=== PATIENT | female | born 1960 | race Hispanic/Latino ===

== ENCOUNTER → 2018-01-05 | Outpatient (CLI) | payer MEDICAID ==
[~2018-01-05] MED LIST: AEC81 PO; ALBU8.5H8 IH; ATOR40TA71 PO; BUDE10.2 IH; DULO30CA2 PO; FENO145T37 PO; FESO4TAB PO; FISH1CAP49 PO; FURO40TA7 PO; GEMF600T3 PO; HYDR12.54 PO; INSNOV SQ; INSU100C6 SQ; INSU100V12 SQ; LEVO50TA11 PO; LINA290C PO; LINA5TAB PO; LISI40TA4 PO; LORA10TA7 PO; METO25TA6 PO; PANT20TA12 PO; POTA-79 PO; PREG300C PO
== END | disposition home or self-care (01) ==
LOC: SHCH 08:27
PROVIDERS: ATTEND Internal Medicine Cardiovascular Disease
DX: I10 Essential (primary) hypertension (principal)
CPT/HCPCS: 93306

== ENCOUNTER → 2018-01-07 | Outpatient (CLI) | payer OTHER, SELFPAY | END | disposition home or self-care (01) | LOC: OIH 10:57 | PROVIDERS: ATTEND Internal Medicine Cardiovascular Disease | DX: Z13.6 Encounter for screening for cardiovascular disorders (principal) | CPT/HCPCS: 75571 ==

== ENCOUNTER → 2018-01-17 | Outpatient (CLI) | payer MEDICAID ==
[~2018-01-17] VITALS: Ht 144.8 cm; Wt 88.5 kg
[~2018-01-17] MED LIST changes: +REGADENOSON 0.4 MG/5 ML PF SYG IVP SCH
== END ==
LOC: SHCH 10:09
PROVIDERS: ATTEND Internal Medicine Cardiovascular Disease
DX: I10 Essential (primary) hypertension (principal); E78.5 Hyperlipidemia, unspecified
CPT/HCPCS: 78452; 93017; 96374; A9500 ×2; J2785

== ENCOUNTER → 2018-01-27 | Outpatient (CLI) | payer MEDICAID ==
[~2018-01-27] MED LIST changes: -REGADENOSON 0.4 MG/5 ML PF SYG IVP SCH
== END | disposition home or self-care (01) ==
LOC: SHCH 10:55
PROVIDERS: ATTEND Internal Medicine Cardiovascular Disease
DX: I87.2 Venous insufficiency (chronic) (peripheral) (principal); R60.9 Edema, unspecified
CPT/HCPCS: 93970

== ENCOUNTER 2018-02-18 06:56 | Day surgery (SDC) | payer MEDICAID ==
[2018-02-16 10:48] VITALS: BP 110/66
[2018-02-16 10:57] LABS: EOSINOPHILS % (AUTO) 1.8 % (0.0-8.0); HEMATOCRIT 33.2 % (36-48); MEAN CORPUSCULAR HEMOGLOBIN 32.3 pg (27.0-33.0); MONOCYTES % (AUTO) 5.8 % (3.0-13.0); NEUTROPHILS % (AUTO) 52.4 % (40.0-77.0); PLATELET COUNT (AUTO) 262 K/uL (130-400); RED CELL DISTRIBUTION WIDTH 15.1 % (11.0-15.5); WHITE BLOOD COUNT (AUTO) 5.2 K/uL (4.8-10.8)
[2018-02-16 11:01] LABS: APPEARANCE,URINE Cloudy (CLEAR); BILIRUBIN,URINE Negative (NEGATIVE); COLOR,URINE Yellow (YELLOW); GLUCOSE, URINE (UA) >=1000 mg/dL (NEGATIVE); KETONES,URINE Negative (NEGATIVE); LEUKOCYTE ESTERASE ,URINE Moderate (NEGATIVE); NITRATE,URINE Positive (NEGATIVE); OCCULT BLOOD,URINE Negative (NEGATIVE); PH,URINE 5.5 (5.0-8.0); PROTEIN,URINE Trace (NEGATIVE)
[2018-02-16 11:05] LABS: CREATININE 1.5 mg/dL (0.5-1.5); POTASSIUM 5.2 mmol/L (3.5-5.1)
[2018-02-16 11:27] LABS: BACTERIA,URINE Many /HPF (None Seen); RBC,URINE 0-1 /HPF (0-1)
[2018-02-16 11:28] LABS: INR 1.01 (0.85-1.15); PARTIAL THROMBOPLASTIN TIME 27.7 SEC (26.3-35.5); PROTHROMBIN TIME 10.6 SEC (9.6-11.6)
[2018-02-18] VITALS (11 sets, daily range): BP systolic 107–137; BP diastolic 53–76
[~2018-02-18] VITALS: Ht 149.9 cm; Wt 91.4 kg
[~2018-02-18 06:56] MED LIST changes: -FURO40TA7 PO; -HYDR12.54 PO; -INSNOV SQ; -POTA-79 PO; +SODIUM CHLORIDE 0.9% 1000ML 1,000 ML IV SCH
[2018-02-18] MEDS ORDERED: ISOVUE-370 50ML VIAL IV ONE (13:13)
[2018-02-18] MEDS ORDERED: IOPAMIDOL-370 100 ML VIAL IV ONE (13:13)
[2018-02-18] MEDS ORDERED: NITROGLYCERIN 5 MG/ML 10 ML VIAL IV ONE (13:13)
[2018-02-18] MEDS ORDERED: HEPARIN SODIUM 1000UNIT/ML 10ML VIAL ONE (13:13)
[2018-02-18] MEDS ORDERED: LIDOCAINE HCL 1% 20 ML VIAL ONE (13:13)
[2018-02-18] MEDS ORDERED: SODIUM BICARB 50MEQ 50ML VIAL ONE (13:13)
[2018-02-18] MEDS ORDERED: DEXTROSE 50%-WATER 50 ML DISP.SYRIN IV PRN (14:30)
[2018-02-18] MEDS ORDERED: POTA-79 PO (14:30)
[2018-02-18] MEDS ORDERED: FURO40TA7 PO (14:30)
[2018-02-18] MEDS ORDERED: GLUCAGON 1MG KIT 1 MG ML IM PRN (14:30)
[2018-02-18] MEDS ORDERED: POTASSIUM CHLORIDE 20 MEQ ERTAB PO SCH (14:30)
[2018-02-18] MEDS ORDERED: SODIUM CHLORIDE 0.9% 10 ML VIAL IVP SCH (14:30)
[2018-02-18] MEDS ORDERED: FUROSEMIDE 10 MG/ML 4ML VIAL ONE (14:35)
[2018-02-18] MEDS ORDERED: INSULIN HUMULIN R 100 UNIT/ML 3ML SQ SCH (16:30)
== END 2018-02-18 19:27 | disposition home or self-care (01) ==
LOC: DAH 06:56
PROVIDERS: ATTEND Internal Medicine Cardiovascular Disease
DX: I25.10 Atherosclerotic heart disease of native coronary artery without angina pectoris (principal); I77.819 Aortic ectasia, unspecified site; I27.29 Other secondary pulmonary hypertension; E11.9 Type 2 diabetes mellitus without complications; I10 Essential (primary) hypertension; E66.9 Obesity, unspecified; K21.9 Gastro-esophageal reflux disease without esophagitis; M19.90 Unspecified osteoarthritis, unspecified site; Z68.41 Body mass index [BMI] 40.0-44.9, adult; Z79.82 Long term (current) use of aspirin; Z79.4 Long term (current) use of insulin; Z79.899 Other long term (current) drug therapy; Z79.01 Long term (current) use of anticoagulants; E78.4 Other hyperlipidemia
CPT/HCPCS: 36415; 71045; 80048; 81001; 82948 ×2; 85025; 85610; 85730; 93005; 93460; C1760 ×2; C1769; C1893; C1894; J1644; J1940; J3490 ×2; Q9967 ×2

== ENCOUNTER → 2018-03-02 | Outpatient (CLI) | payer MEDICAID ==
[~2018-03-02] MED LIST changes: +FURO40TA7 PO; +POTA-79 PO; -SODIUM CHLORIDE 0.9% 1000ML 1,000 ML IV SCH
== END | disposition home or self-care (01) ==
LOC: RAH 13:11
PROVIDERS: ATTEND Internal Medicine Cardiovascular Disease
DX: J44.9 Chronic obstructive pulmonary disease, unspecified (principal); J98.11 Atelectasis; K80.80 Other cholelithiasis without obstruction; K76.0 Fatty (change of) liver, not elsewhere classified
CPT/HCPCS: 71250

== ENCOUNTER → 2018-03-23 | Outpatient (CLI) | payer MEDICAID ==
[~2018-03-23] MED LIST changes: +ALBUTEROL SULFATE 0.083% 2.5 MG/3 ML INH IH ONE
== END | disposition home or self-care (01) ==
LOC: RESP 10:18
PROVIDERS: ATTEND Internal Medicine Cardiovascular Disease
DX: R06.02 Shortness of breath (principal)
CPT/HCPCS: 94060; 94727; 94729

== ENCOUNTER → 2018-03-29 | Outpatient (CLI) | payer MEDICAID ==
[~2018-03-29] MED LIST changes: -ALBUTEROL SULFATE 0.083% 2.5 MG/3 ML INH IH ONE; +IOPAMIDOL-370 100 ML VIAL IV ONE
== END | disposition home or self-care (01) ==
LOC: OIH 08:57
PROVIDERS: ATTEND Internal Medicine Cardiovascular Disease
DX: I71.9 Aortic aneurysm of unspecified site, without rupture (principal); K80.20 Calculus of gallbladder without cholecystitis without obstruction; K76.0 Fatty (change of) liver, not elsewhere classified
CPT/HCPCS: 71275; Q9967

== ENCOUNTER → 2018-03-30 | Outpatient (CLI) | payer MEDICAID ==
[~2018-03-30] MED LIST changes: -IOPAMIDOL-370 100 ML VIAL IV ONE
== END | disposition home or self-care (01) ==
LOC: RAH 11:13
PROVIDERS: ATTEND Internal Medicine Cardiovascular Disease
DX: N28.9 Disorder of kidney and ureter, unspecified (principal)
CPT/HCPCS: 76770

== ENCOUNTER → 2018-09-26 | Outpatient (CLI) | payer MEDICAID ==
[~2018-09-26] MED LIST changes: -GEMF600T3 PO; +GEMF600T4 PO
== END | disposition home or self-care (01) ==
LOC: RAH 08:51
PROVIDERS: ATTEND Internal Medicine Cardiovascular Disease
DX: I71.2 Thoracic aortic aneurysm, without rupture (principal); K76.0 Fatty (change of) liver, not elsewhere classified; M47.895 Other spondylosis, thoracolumbar region
CPT/HCPCS: 71250

== ENCOUNTER 2019-03-08 05:35 | Day surgery (SDC) | payer MEDICAID ==
[~2019-03-08] VITALS: Ht 149.9 cm; Wt 94.8 kg
[2019-03-08] VITALS (7 sets, daily range): BP systolic 86–117; BP diastolic 52–65
[~2019-03-08 05:35] MED LIST changes: -GEMF600T4 PO; +GEMF600T5 PO; -LISI40TA4 PO
[2019-03-08] MEDS ORDERED: SODIUM CHLORIDE 0.9% 1000ML 1,000 ML IV ONE (05:48)
[2019-03-08] MEDS ORDERED: INSU100C6 SQ (06:34)
[2019-03-08] MEDS ORDERED: METO5TAB2 PO (06:34)
[2019-03-08] MEDS ORDERED: HYDR10 PO (06:34)
[2019-03-08] MEDS ORDERED: ATOR40TA69 PO (06:34)
[2019-03-08] MEDS ORDERED: PNV1TABL78 PO (06:34)
[2019-03-08] MEDS ORDERED: PROPOFOL 10 MG/ML 20ML VIAL IV ONE (07:43)
== END 2019-03-08 08:25 | disposition home or self-care (01) ==
LOC: ENDO 05:35 → DAH 05:35 → ENDO 08:25
PROVIDERS: ATTEND Internal Medicine Gastroenterology
DX: K64.1 Second degree hemorrhoids (principal); K64.8 Other hemorrhoids; K92.2 Gastrointestinal hemorrhage, unspecified; K21.9 Gastro-esophageal reflux disease without esophagitis; Z68.41 Body mass index [BMI] 40.0-44.9, adult; Z98.890 Other specified postprocedural states; Z79.899 Other long term (current) drug therapy; Z79.4 Long term (current) use of insulin; Z79.84 Long term (current) use of oral hypoglycemic drugs; E11.9 Type 2 diabetes mellitus without complications; E03.9 Hypothyroidism, unspecified; I10 Essential (primary) hypertension; E78.5 Hyperlipidemia, unspecified; Z86.010 Personal history of colon polyps; Z90.710 Acquired absence of both cervix and uterus; Z79.82 Long term (current) use of aspirin; K59.04 Chronic idiopathic constipation; G47.33 Obstructive sleep apnea (adult) (pediatric)
CPT/HCPCS: 45378; 82948 ×2; A4606; J2704; J7030

== ENCOUNTER → 2019-03-21 | Outpatient (CLI) | payer MEDICAID ==
[~2019-03-21] MED LIST changes: -ALBU8.5H8 IH; +ATOR40TA69 PO; -ATOR40TA71 PO; -BUDE10.2 IH; -FENO145T37 PO; -FISH1CAP49 PO; -FURO40TA7 PO; +HYDR10 PO; -LINA290C PO; -LORA10TA7 PO; +METO5TAB2 PO; +PNV1TABL78 PO; -POTA-79 PO
== END | disposition home or self-care (01) ==
LOC: RAH 11:14
PROVIDERS: ATTEND Internal Medicine Cardiovascular Disease
DX: I25.10 Atherosclerotic heart disease of native coronary artery without angina pectoris (principal); I71.2 Thoracic aortic aneurysm, without rupture; M51.34 Other intervertebral disc degeneration, thoracic region; R18.8 Other ascites
CPT/HCPCS: 71250

== ENCOUNTER → 2019-03-24 | Outpatient (CLI) | payer MEDICAID | END | disposition home or self-care (01) | LOC: SHCH 13:54 | PROVIDERS: ATTEND Internal Medicine Cardiovascular Disease | DX: I87.2 Venous insufficiency (chronic) (peripheral) (principal); R60.9 Edema, unspecified | CPT/HCPCS: 93970 ==

== ENCOUNTER → 2019-04-12 | Outpatient (CLI) | payer MEDICAID | END | disposition home or self-care (01) | LOC: SHCH 09:06 | PROVIDERS: ATTEND Internal Medicine Cardiovascular Disease | DX: I11.9 Hypertensive heart disease without heart failure (principal); I08.0 Rheumatic disorders of both mitral and aortic valves | CPT/HCPCS: 93306 ==

== ENCOUNTER 2019-05-01 17:24 | Emergency (ER) | payer MEDICAID ==
[2019-05-01 18:32] LABS: BASOPHILS % (AUTO) 0.9 % (0.0-5.0); EOSINOPHILS % (AUTO) 1.8 % (0.0-8.0); LYMPHOCYTES % (AUTO) 34.8 % (21.0-51.0); MEAN CORPUSCULAR HEMOGLOBIN 33.6 pg (27.0-33.0); MEAN CORPUSCULAR HGB CONC 33.1 g/dL (32.0-36.0); MEAN CORPUSCULAR VOLUME 101.6 fL (79-99); MONOCYTES % (AUTO) 8.5 % (3.0-13.0); PLATELET COUNT (AUTO) 185 K/uL (130-400); RED BLOOD CELL COUNT(AUTO) 3.65 MIL/uL (4.00-5.50); RED CELL DISTRIBUTION WIDTH 14.4 % (11.0-15.5); WHITE BLOOD COUNT (AUTO) 7.5 K/uL (4.8-10.8)
[2019-05-01 18:41] LABS: CREATININE 1.4 mg/dL (0.5-1.5); POTASSIUM 4.1 mmol/L (3.5-5.1)
[2019-05-01 18:43] LABS: INR 1.08 (0.85-1.15); PARTIAL THROMBOPLASTIN TIME 32.3 SEC (26.3-35.5); PROTHROMBIN TIME 11.3 SEC (9.6-11.6)
[2019-05-01 18:45] LABS: ALBUMIN 2.8 g/dL (3.5-5.0); BILIRUBIN,TOTAL 0.8 mg/dL (0.2-1.0); TOTAL PROTEIN, SERUM 6.4 g/dL (6.0-8.3)
[2019-05-01 18:49] LABS: BILIRUBIN,URINE Negative (NEGATIVE); COLOR,URINE Yellow (YELLOW); GLUCOSE, URINE (UA) Negative (NEGATIVE); KETONES,URINE Negative (NEGATIVE); LEUKOCYTE ESTERASE ,URINE Trace (NEGATIVE); NITRATE,URINE Negative (NEGATIVE); OCCULT BLOOD,URINE Negative (NEGATIVE); PROTEIN,URINE Negative (NEGATIVE)
[2019-05-01 18:58] LABS: APPEARANCE,URINE CLEAR (CLEAR)
[2019-05-01 19:25] LABS: BACTERIA,URINE Rare /HPF (None Seen); RBC,URINE 0-1 /HPF (0-1); SQUAMOUS EPITHELIAL CELL,UR Few /HPF (0-2); YEAST,URINE BUDDING Rare /HPF (None Seen)
[2019-05-02] MEDS ORDERED: INSULIN LEVEMIR SQ ×2 (11:05)
== END 2019-05-01 22:38 | disposition home or self-care (01) ==
LOC: EDH 17:24
DX: R60.0 Localized edema (principal); E11.9 Type 2 diabetes mellitus without complications
CPT/HCPCS: 36415; 80053; 81001; 85025; 85610; 85730; 93970

== ENCOUNTER 2019-05-02 08:37 | Day surgery (SDC) | payer MEDICAID ==
[~2019-05-02] VITALS: Ht 144.8 cm; Wt 94.3 kg
[~2019-05-02 08:37] MED LIST changes: +SODIUM CHLORIDE 0.9% 1000ML 1,000 ML IV ONE
[2019-05-02 10:37] VITALS: BP 127/80
[2019-05-02] MEDS ORDERED: INSULIN LEVEMIR SQ ×2 (11:05)
[2019-05-02 11:48] VITALS: BP 86/45
[2019-05-02 11:56] VITALS: BP 90/64
[2019-05-02 12:00] VITALS: BP 105/60
[2019-05-02 12:05] VITALS: BP 109/68
[2019-05-02 12:15] VITALS: BP 130/62
== END 2019-05-02 12:20 | disposition home or self-care (01) ==
LOC: ENDO 08:37 → DAH 08:37 → ENDO 12:20
PROVIDERS: ATTEND Internal Medicine
DX: K29.50 Unspecified chronic gastritis without bleeding (principal); I85.00 Esophageal varices without bleeding; K31.89 Other diseases of stomach and duodenum; R60.1 Generalized edema; K76.0 Fatty (change of) liver, not elsewhere classified; K59.04 Chronic idiopathic constipation; K64.1 Second degree hemorrhoids; K31.84 Gastroparesis; E78.5 Hyperlipidemia, unspecified; I10 Essential (primary) hypertension; K21.9 Gastro-esophageal reflux disease without esophagitis; G47.30 Sleep apnea, unspecified; R32 Unspecified urinary incontinence; E11.9 Type 2 diabetes mellitus without complications; Z86.010 Personal history of colon polyps; E03.9 Hypothyroidism, unspecified; Z79.82 Long term (current) use of aspirin; Z80.0 Family history of malignant neoplasm of digestive organs; Z90.49 Acquired absence of other specified parts of digestive tract; Z98.51 Tubal ligation status
CPT/HCPCS: 43239; 82948 ×2; A4606; J7030 ×2

== ENCOUNTER → 2019-06-08 | Outpatient (CLI) | payer MEDICAID ==
[~2019-06-08] MED LIST changes: -INSU100V12 SQ; +INSULIN LEVEMIR SQ; -SODIUM CHLORIDE 0.9% 1000ML 1,000 ML IV ONE
== END | disposition home or self-care (01) ==
LOC: RAH 07:31
PROVIDERS: ATTEND Internal Medicine Gastroenterology
DX: R94.5 Abnormal results of liver function studies (principal); K82.8 Other specified diseases of gallbladder; R18.8 Other ascites; N26.1 Atrophy of kidney (terminal)
CPT/HCPCS: 76700; 93975

== ENCOUNTER → 2020-01-02 | Outpatient (CLI) | payer MEDICAID | END | disposition home or self-care (01) | LOC: SHCH 08:55 | PROVIDERS: ATTEND Internal Medicine Cardiovascular Disease | DX: R01.1 Cardiac murmur, unspecified (principal) | CPT/HCPCS: 93306; 93356 ==

== ENCOUNTER 2020-04-02 06:02 | Day surgery (SDC) | payer MEDICAID ==
[2020-04-01 13:24] LABS: APPEARANCE,URINE Clear (CLEAR); BILIRUBIN,URINE Negative (NEGATIVE); COLOR,URINE Yellow (YELLOW); GLUCOSE, URINE (UA) Negative (NEGATIVE); KETONES,URINE Negative (NEGATIVE); LEUKOCYTE ESTERASE ,URINE Moderate (NEGATIVE); NITRATE,URINE Negative (NEGATIVE); OCCULT BLOOD,URINE Negative (NEGATIVE); PROTEIN,URINE Negative (NEGATIVE); UROBILINOGEN,URINE 0.2 mg/dL (0.2-1.0)
[2020-04-01 13:25] LABS: BASOPHILS % (AUTO) 0.5 % (0.0-5.0); EOSINOPHILS % (AUTO) 2.9 % (0.0-8.0); HEMATOCRIT 40.6 % (36-48); LYMPHOCYTES % (AUTO) 15.1 % (21.0-51.0); MEAN CORPUSCULAR HEMOGLOBIN 31.3 pg (27.0-33.0); MEAN CORPUSCULAR VOLUME 97.6 fL (79-99); MONOCYTES % (AUTO) 5.2 % (3.0-13.0); NEUTROPHILS % (AUTO) 76.1 % (40.0-77.0); PLATELET COUNT (AUTO) 279 K/uL (130-400); RED BLOOD CELL COUNT(AUTO) 4.16 MIL/uL (4.00-5.50); RED CELL DISTRIBUTION WIDTH 13.1 % (11.0-15.5)
[2020-04-01 13:31] LABS: POTASSIUM 5.2 mmol/L (3.5-5.1)
[2020-04-01 13:34] LABS: INR 0.95 (0.85-1.15); PARTIAL THROMBOPLASTIN TIME 29.1 SEC (26.3-35.5); PROTHROMBIN TIME 10.3 SEC (9.6-11.6)
[2020-04-01 13:35] VITALS: BP 114/69
[2020-04-01 13:52] LABS: BACTERIA,URINE Few /HPF (None Seen); RBC,URINE 0-1 /HPF (0-1); WBC,URINE 0-1 /HPF (0-1)
--- NOTE | 2020-04-01 15:30 | NUR ---
RE: ABNORMAL LABS INFORMED KALE JACKSON REGARDING PATIENTS URINALYSIS RESULTS (PENDING URINE CULTURE RESULTS). INFORMED HIM OF NA 133, K+ 5.2. RECEIVED ORDERS FOR REPEAT BMP IN AM.
[~2020-04-02] VITALS: Ht 147.3 cm; Wt 70.1 kg
[2020-04-02] VITALS (11 sets, daily range): BP systolic 90–112; BP diastolic 60–66
[~2020-04-02 06:02] MED LIST changes: -AEC81 PO; -ATOR40TA69 PO; -DULO30CA2 PO; +DULO60CA64 PO; -FESO4TAB PO; +FOLI0.4T2 PO; +FURO40TA5 PO; -GEMF600T5 PO; -HYDR10 PO; +INSU100V12 SQ; -INSULIN LEVEMIR SQ; +LEVO150T11 PO; -LEVO50TA11 PO; -METO25TA6 PO; -METO5TAB2 PO; -PANT20TA12 PO; +PANT40TA54 PO; -PNV1TABL78 PO; -PREG300C PO; +PREG75 PO; +SPIR50TA5 PO; +SUPER B COMPLEX PO
[2020-04-02 06:36] LABS: CREATININE 1.1 mg/dL (0.5-1.5); POTASSIUM 4.3 mmol/L (3.5-5.1)
[2020-04-02] MEDS ORDERED: SODIUM CHLORIDE 0.9% 1000ML 1,000 ML IV ONE (07:37)
[2020-04-02] MEDS ORDERED: SODIUM BICARB 50MEQ 50ML VIAL ONE (09:36)
[2020-04-02] MEDS ORDERED: NITROGLYCERIN 2 MG/VIAL VIAL IV ONE (09:37)
[2020-04-02] MEDS ORDERED: LIDOCAINE HCL 2% 20ML ONE (09:37)
[2020-04-02] MEDS ORDERED: MIDAZOLAM HCL 1 MG/ML 2ML VIAL ONE (09:37)
[2020-04-02] MEDS ORDERED: MEPERIDINE-PF 25 MG/ML SYG ONE (09:37)
[2020-04-02] MEDS ORDERED: IOHEXOL-350 50ML VIAL IV ONE (09:37)
[2020-04-02] MEDS ORDERED: HEPARIN SODIUM 1000UNIT/ML 10ML VIAL ONE (09:37)
[2020-04-02] MEDS ORDERED: IOHEXOL 350 MG/ML 100ML INFUS..BTL IV ONE (09:37)
[2020-04-02] MEDS ORDERED: DOBUTAMINE 250MG/D5 250ML 250 ML IV ONE (10:23)
[2020-04-02] MEDS ORDERED: DEXTROSE 50%-WATER 50 ML DISP.SYRIN IV PRN (11:15)
[2020-04-02] MEDS ORDERED: GLUCAGON 1MG KIT 1 MG ML IM PRN (11:15)
[2020-04-02] MEDS ORDERED: INSULIN HUMULIN R 100 UNIT/ML 3ML SQ SCH (11:30)
--- NOTE | 2020-04-02 13:10 | NUR ---
REPORT RESUMED CARE OF PATIENT FROM JANE GARZA. PT IN BED,NO DISTRESS NOTED. RIGHT GROIN DRESSING DRY AND INTACT, SEE POST CATH ASSESSMENT. PT DENIES ANY PAIN OR DISCOMFORTS. INSTRUCTED PT TO MAINTAIN BEDREST . CALL LIGHT WITHIN REACH
--- NOTE | 2020-04-02 16:35 | NUR ---
dc pt dc home via wc,no distress noted. pt denied any pain or discomfort. right groin dressing dry and intact, no bleeding or hematomat to site. pt accompanied by daughter
== END 2020-04-02 16:35 | disposition home or self-care (01) ==
LOC: DAH 06:02
PROVIDERS: ATTEND Internal Medicine Cardiovascular Disease
DX: I35.0 Nonrheumatic aortic (valve) stenosis (principal); I25.10 Atherosclerotic heart disease of native coronary artery without angina pectoris; E11.9 Type 2 diabetes mellitus without complications; I10 Essential (primary) hypertension; Z88.5 Allergy status to narcotic agent; Z79.01 Long term (current) use of anticoagulants
CPT/HCPCS: 36415 ×2; 71045; 80048 ×2; 81001; 82948 ×3; 85025; 85610; 85730; 87088; 93005; 93460; 93463; A4215; A4216; A4221; A4222; A4223 ×3; A4606; A4663; C1760; C1769 ×2; C1893; C1894 ×2; J1250; J1644; J2175; J2250; J3490 ×3; J7030; Q9965; Q9967 ×2; 99156; 99157

== ENCOUNTER → 2020-06-05 | Outpatient (CLI) | payer MEDICAID ==
[~2020-06-05] MED LIST changes: +IOHEXOL 350 MG/ML 100ML INFUS..BTL IV ONE; +METOPROLOL TARTRATE 1 MG/ML 5ML VIAL IV ONE; +PANT40TA25 PO; -PANT40TA54 PO
== END | disposition home or self-care (01) ==
LOC: RAH 07:46
PROVIDERS: ATTEND Internal Medicine Cardiovascular Disease
DX: I71.2 Thoracic aortic aneurysm, without rupture (principal); E78.5 Hyperlipidemia, unspecified; I10 Essential (primary) hypertension; J90 Pleural effusion, not elsewhere classified; J98.11 Atelectasis
CPT/HCPCS: 74174; 75574; J3490; Q9967

== ENCOUNTER → 2021-01-21 | Outpatient (CLI) | payer MEDICAID ==
[~2021-01-21] MED LIST changes: -FOLI0.4T2 PO; +FOLI0.4T6 PO; -IOHEXOL 350 MG/ML 100ML INFUS..BTL IV ONE; -METOPROLOL TARTRATE 1 MG/ML 5ML VIAL IV ONE; -PANT40TA25 PO; +PANT40TA54 PO
== END | disposition home or self-care (01) ==
LOC: OIH 01-20 10:01
PROVIDERS: ATTEND Family Medicine
DX: M25.561 Pain in right knee (principal); R07.81 Pleurodynia; Z96.81 Presence of artificial skin
CPT/HCPCS: 71100; 73562

== ENCOUNTER 2021-09-17 14:45 | Inpatient (IN) | payer MEDICAID ==
[~2021-09-17] VITALS: Ht 144.8 cm; Wt 76.2 kg
[2021-09-17 15:39] LABS: EOSINOPHILS % (AUTO) 2.4 % (0.0-8.0); HEMATOCRIT 32.2 % (36-48); LYMPHOCYTES % (AUTO) 25.5 % (21.0-51.0); MEAN CORPUSCULAR HEMOGLOBIN 26.6 pg (27.0-33.0); MEAN CORPUSCULAR HGB CONC 29.5 g/dL (32.0-36.0); MEAN CORPUSCULAR VOLUME 90.2 fL (79-99); MONOCYTES % (AUTO) 7.2 % (3.0-13.0); NEUTROPHILS % (AUTO) 63.7 % (40.0-77.0); PLATELET COUNT (AUTO) 273 K/uL (130-400); RED BLOOD CELL COUNT(AUTO) 3.57 MIL/uL (4.00-5.50); RED CELL DISTRIBUTION WIDTH 22.5 % (11.0-15.5); WHITE BLOOD COUNT (AUTO) 5.9 K/uL (4.8-10.8)
[2021-09-17 15:56] LABS: CREATININE 1.3 mg/dL (0.5-1.5); POTASSIUM 4.3 mmol/L (3.5-5.1)
[2021-09-17 16:01] LABS: ALBUMIN 2.9 g/dL (3.5-5.0); BILIRUBIN,TOTAL 0.4 mg/dL (0.2-1.0); TOTAL PROTEIN, SERUM 6.6 g/dL (6.0-8.3)
[2021-09-17 16:04] LABS: B-TYPE NATRIURETIC PEPTIDE 1450 pg/mL (0-100)
[2021-09-17] MEDS ORDERED: FUROSEMIDE 40MG VIAL IV ONE (16:30)
[2021-09-17] MEDS ORDERED: KCL 20 MEQ ERTAB PO PRN (17:00)
[2021-09-17] MEDS ORDERED: ACETAMINOPHEN 650 MG SUPPOSITORY RC PRN (17:00)
[2021-09-17] MEDS ORDERED: CLONIDINE HCL 0.1 MG TABLET PO PRN (17:00)
[2021-09-17] MEDS ORDERED: DEXTROSE 50%-WATER 50 ML DISP.SYRIN IV PRN (17:00)
[2021-09-17] MEDS ORDERED: GLUCAGON 1MG KIT 1 MG ML IM PRN (17:00)
[2021-09-17] MEDS ORDERED: TEMAZEPAM 15 MG CAPSULE PO PRN (17:00)
[2021-09-17] MEDS ORDERED: ONDANSETRON 4MG INJ IVP PRN (17:00)
[2021-09-17] MEDS ORDERED: POTASSIUM CHLORIDE 20MEQ/100ML 100 ML IV PRN (17:00)
[2021-09-17] MEDS ORDERED: ACETAMINOPHEN 325 MG TAB PO PRN (17:00)
[2021-09-17] MEDS ORDERED: POTASSIUM CHLORIDE 10% ELIXIR 20 MEQ/15 ML UDCUP PO PRN (17:00)
[2021-09-17] MEDS ORDERED: HYDRALAZINE 20MG/ML VIAL IV PRN (17:00)
[2021-09-17 18:04] LABS: APPEARANCE,URINE Cloudy (CLEAR); BILIRUBIN,URINE Negative (NEGATIVE); COLOR,URINE Yellow (YELLOW); GLUCOSE, URINE (UA) >=1000 mg/dL (NEGATIVE); KETONES,URINE Negative (NEGATIVE); LEUKOCYTE ESTERASE ,URINE Trace (NEGATIVE); NITRATE,URINE Positive (NEGATIVE); OCCULT BLOOD,URINE Negative (NEGATIVE); PROTEIN,URINE Negative (NEGATIVE)
[2021-09-17 19:27] LABS: BACTERIA,URINE Moderate /HPF (None Seen); RBC,URINE 0-1 /HPF (0-1); SQUAMOUS EPITHELIAL CELL,UR Few /HPF (0-2)
[2021-09-17] MEDS: INSULIN HUMULIN R 100 UNIT/ML 3ML SQ SCH (19:53)
[2021-09-17] MEDS ORDERED: IOHEXOL-350 75 ML VIAL IV ONE (20:29)
[2021-09-17] MEDS: NACL 23.4% (4MEQ/ML) 30ML VIAL 154 MEQ in DEXTROSE 10%-WATER 961.5 ML IV SCH ×2 (20:30→21:14)
[2021-09-17] MEDS ORDERED: DEXTROSE 10%-WATER 1,000 ML IV ONE (20:31)
[2021-09-17] MEDS ORDERED: SIMVASTATIN 20 MG TABLET PO SCH (21:00)
[2021-09-18] MEDS ORDERED: CEFTRIAXONE 1G VIAL IVP SCH (00:30)
[2021-09-18] MEDS ORDERED: CEFTRIAXONE 1G VIAL ONE (00:31)
[2021-09-18] MEDS ORDERED: FERR500P12 MC (02:18)
[2021-09-18] MEDS ORDERED: PANT40TA54 PO (02:18)
[2021-09-18] MEDS ORDERED: FOLI0.4T6 PO (02:18)
[2021-09-18] MEDS ORDERED: FURO40TA5 PO (02:18)
[2021-09-18] MEDS ORDERED: METO-408 PO (02:18)
[2021-09-18] MEDS ORDERED: DULO60CA64 PO (02:18)
[2021-09-18] MEDS ORDERED: METF-446 PO (02:18)
[2021-09-18] MEDS ORDERED: LEVO75TA10 PO (02:18)
[2021-09-18] MEDS ORDERED: HUMLIS7525 SQ (02:18)
[2021-09-18] MEDS ORDERED: GABA-529 PO (02:18)
[2021-09-18] MEDS ORDERED: SPIR50TA PO (02:18)
[2021-09-18] MEDS ORDERED: LACT10SO32 PO (02:18)
[2021-09-18] MEDS ORDERED: LORA10TA7 PO (02:18)
[2021-09-18] MEDS ORDERED: EMPA10TA PO (02:18)
[2021-09-18 02:51] VITALS: BP 94/60
[2021-09-18 03:56] VITALS: BP 101/60
[2021-09-18 05:25] LABS: BASOPHILS % (AUTO) 0.6 % (0.0-5.0); EOSINOPHILS % (AUTO) 1.9 % (0.0-8.0); HEMATOCRIT 32.5 % (36-48); LYMPHOCYTES % (AUTO) 20.1 % (21.0-51.0); MEAN CORPUSCULAR HEMOGLOBIN 26.1 pg (27.0-33.0); MEAN CORPUSCULAR HGB CONC 28.6 g/dL (32.0-36.0); MONOCYTES % (AUTO) 8.4 % (3.0-13.0); NEUTROPHILS % (AUTO) 68.7 % (40.0-77.0); PLATELET COUNT (AUTO) 290 K/uL (130-400); RED BLOOD CELL COUNT(AUTO) 3.57 MIL/uL (4.00-5.50); RED CELL DISTRIBUTION WIDTH 22.9 % (11.0-15.5); WHITE BLOOD COUNT (AUTO) 6.8 K/uL (4.8-10.8)
[2021-09-18 05:48] LABS: CREATININE 1.3 mg/dL (0.5-1.5); HEMOGLOBIN A1C 8.2 % (4.0-6.0); MAGNESIUM 2.2 mg/dL (1.80-2.40); PHOSPHORUS 5.4 mg/dL (2.5-4.9); POTASSIUM 4.8 mmol/L (3.5-5.1); THYROID STIMULATING HORMONE 0.08 uIU/mL (0.36-3.74)
[2021-09-18] MEDS: INSULIN HUMULIN R 100 UNIT/ML 3ML SQ SCH ×2 (06:16→11:50)
[2021-09-18] MEDS ORDERED: LEVOTHYROXINE 150 MCG TABLET PO SCH (06:30)
[2021-09-18 08:38] VITALS: BP 108/61
[2021-09-18] MEDS ORDERED: ASPIRIN 81MG CHEW TAB PO SCH (09:00)
[2021-09-18] MEDS ORDERED: FUROSEMIDE 40MG VIAL IV SCH (09:00)
[2021-09-18] MEDS ORDERED: PANTOPRAZOLE 40 MG TAB DR PO SCH (09:00)
[2021-09-18] MEDS ORDERED: ENOXAPARIN SODIUM 40 MG/0.4 ML SYRINGE SQ SCH (09:00)
[2021-09-18] MEDS ORDERED: METOPROLOL SUCCINATE 50 MG TAB.SR.24H PO SCH (09:00)
[2021-09-18] MEDS ORDERED: FERROUS SULFATE 325 MG TABLET.DR PO SCH (09:00)
[2021-09-18 12:05] VITALS: BP 98/58
[2021-09-18 16:47] VITALS: BP 103/81
== END 2021-09-18 18:45 | disposition short-term general hospital (02) | DRG 194 ==
LOC: EDH 14:45 → EDHIP 14:46 → 4DH 09-18 02:43
PROVIDERS: ADMIT Internal Medicine; ATTEND Internal Medicine
DX: I11.0 Hypertensive heart disease with heart failure (principal); J96.01 Acute respiratory failure with hypoxia; I08.3 Combined rheumatic disorders of mitral, aortic and tricuspid valves; N39.0 Urinary tract infection, site not specified; E11.51 Type 2 diabetes mellitus with diabetic peripheral angiopathy without gangrene; E11.649 Type 2 diabetes mellitus with hypoglycemia without coma; K74.60 Unspecified cirrhosis of liver; D64.9 Anemia, unspecified; J98.11 Atelectasis; R79.89 Other specified abnormal findings of blood chemistry; Z20.822 Contact with and (suspected) exposure to COVID-19; M19.90 Unspecified osteoarthritis, unspecified site; K21.9 Gastro-esophageal reflux disease without esophagitis; I50.43 Acute on chronic combined systolic (congestive) and diastolic (congestive) heart failure; E03.9 Hypothyroidism, unspecified; E78.00 Pure hypercholesterolemia, unspecified; K58.9 Irritable bowel syndrome, unspecified; I25.110 Atherosclerotic heart disease of native coronary artery with unstable angina pectoris; Z88.5 Allergy status to narcotic agent; I25.2 Old myocardial infarction; Z79.4 Long term (current) use of insulin
CPT/HCPCS: 36415; 71045; 71275; 74174; 75574; 76700; 80048; 80053; 81001; 82550; 82948; 83036; 83735; 83874; 83880; 84100; 84145; 84443; 84484; 85025; 85378; 87077; 87088; 87186; 87635; 93005; 93970; G0378; J0696; J1650; J1815; J1940; J3490; J7131; Q9967

== ENCOUNTER → 2021-11-27 | Outpatient (CLI) | payer MEDICAID ==
[~2021-11-27] MED LIST changes: +EMPA10TA PO; +FERR500P12 MC; +GABA-529 PO; +HUMLIS7525 SQ; +LACT10SO32 PO; +LEVO75TA10 PO; +LORA10TA7 PO; +METF-446 PO; +METO-408 PO; +SPIR50TA PO
== END | disposition home or self-care (01) ==
LOC: SHCH 10:29
PROVIDERS: ATTEND Internal Medicine Cardiovascular Disease
DX: I35.0 Nonrheumatic aortic (valve) stenosis (principal); I10 Essential (primary) hypertension; Z95.2 Presence of prosthetic heart valve; R55 Syncope and collapse
CPT/HCPCS: 93306

== ENCOUNTER 2022-03-11 11:06 | Emergency (ER) | payer MEDICAID ==
[~2022-03-11] VITALS: Ht 144.8 cm; Wt 65.8 kg
[~2022-03-11 11:06] MED LIST changes: +LIDOP TD
[2022-03-11 11:43] LABS: BASOPHILS % (AUTO) 0.2 % (0.0-5.0); EOSINOPHILS % (AUTO) 0.2 % (0.0-8.0); HEMATOCRIT 30.4 % (36-48); LYMPHOCYTES % (AUTO) 23.3 % (21.0-51.0); MEAN CORPUSCULAR HEMOGLOBIN 23.4 pg (27.0-33.0); MEAN CORPUSCULAR HGB CONC 28.6 g/dL (32.0-36.0); MEAN CORPUSCULAR VOLUME 81.7 fL (79-99); MONOCYTES % (AUTO) 5.7 % (3.0-13.0); NEUTROPHILS % (AUTO) 70.1 % (40.0-77.0); NUCLEATED RED BLOOD CELLS 0.2 % (0.0-0.19); PLATELET COUNT (AUTO) 296 K/uL (130-400); RED BLOOD CELL COUNT(AUTO) 3.72 MIL/uL (4.00-5.50); RED CELL DISTRIBUTION WIDTH 15.9 % (11.0-15.5); WHITE BLOOD COUNT (AUTO) 12.4 K/uL (4.8-10.8)
[2022-03-11 11:54] LABS: CREATININE 1.1 mg/dL (0.5-1.5); INR 0.93 (0.85-1.15); POTASSIUM 3.8 mmol/L (3.5-5.1); PROTHROMBIN TIME 10.2 SEC (9.6-11.6)
[2022-03-11 11:55] LABS: PARTIAL THROMBOPLASTIN TIME 30.8 SEC (26.3-35.5)
[2022-03-11 11:58] LABS: ALBUMIN 2.6 g/dL (3.5-5.0); BILIRUBIN,TOTAL 0.5 mg/dL (0.2-1.0); TOTAL PROTEIN, SERUM 7.4 g/dL (6.0-8.3)
[2022-03-11 13:49] LABS: APPEARANCE,URINE Clear (CLEAR); BILIRUBIN,URINE Negative (NEGATIVE); COLOR,URINE Yellow (YELLOW); GLUCOSE, URINE (UA) >=1000 mg/dL (NEGATIVE); KETONES,URINE Negative (NEGATIVE); LEUKOCYTE ESTERASE ,URINE Negative (NEGATIVE); NITRATE,URINE Negative (NEGATIVE); OCCULT BLOOD,URINE Negative (NEGATIVE); PH,URINE 6.5 (5.0-8.0); PROTEIN,URINE Negative (NEGATIVE)
[2022-03-11] MEDS ORDERED: TRAM50TA2 PO (13:51)
[2022-03-11] MEDS ORDERED: CLIN-141 PO (13:51)
[2022-03-11] MEDS ORDERED: 0.9% NACL 500ML IV.SOLN 500 ML IV ONE (14:00)
[2022-03-11] MEDS ORDERED: CLINDAMYCIN IVPB 600MG/50ML 50 ML IV SCH (14:00)
[2022-03-11] MEDS ORDERED: ONDANSETRON 4MG INJ IVP ONE (14:00)
[2022-03-11] MEDS ORDERED: MORPHINE 4 MG SYG IVP ONE (14:00)
[2022-03-11 14:06] LABS: RBC,URINE 0-1 /HPF (0-1); WBC,URINE 0-1 /HPF (0-1)
[2022-03-11 14:07] LABS: BACTERIA,URINE Rare /HPF (None Seen); SQUAMOUS EPITHELIAL CELL,UR Rare /HPF (0-2)
[2022-03-11 15:06] VITALS: BP 107/53
== END 2022-03-11 15:14 | disposition home or self-care (01) ==
LOC: EDH 11:06
DX: L03.116 Cellulitis of left lower limb (principal); M54.50 Low back pain, unspecified; E11.9 Type 2 diabetes mellitus without complications; E78.00 Pure hypercholesterolemia, unspecified; I10 Essential (primary) hypertension; E03.9 Hypothyroidism, unspecified; Z90.89 Acquired absence of other organs; Z98.890 Other specified postprocedural states; Z79.899 Other long term (current) drug therapy; Z79.4 Long term (current) use of insulin; Z79.84 Long term (current) use of oral hypoglycemic drugs; Z88.5 Allergy status to narcotic agent
CPT/HCPCS: 36415; 80053; 81001; 84484; 85025; 85610; 85730; 93005; 93971; 96365; 96375; 99285; J2270; J2405; J3490; J7040

== ENCOUNTER → 2022-03-31 | Outpatient (CLI) | payer MEDICAID ==
[~2022-03-31] MED LIST changes: +CLIN-141 PO; +LIDOCAINE HCL 4% LTA SOL 4 ML VIAL TP ONE; +TRAM50TA2 PO
== END | disposition home or self-care (01) ==
LOC: WHH 08:10
PROVIDERS: ATTEND Family Medicine
DX: E11.622 Type 2 diabetes mellitus with other skin ulcer (principal); L97.822 Non-pressure chronic ulcer of other part of left lower leg with fat layer exposed; I87.8 Other specified disorders of veins; E11.628 Type 2 diabetes mellitus with other skin complications; I10 Essential (primary) hypertension; I25.10 Atherosclerotic heart disease of native coronary artery without angina pectoris; E78.5 Hyperlipidemia, unspecified; K74.60 Unspecified cirrhosis of liver; Z90.49 Acquired absence of other specified parts of digestive tract; Z90.710 Acquired absence of both cervix and uterus; Z79.4 Long term (current) use of insulin; Z79.899 Other long term (current) drug therapy
CPT/HCPCS: 11042; A4450; A6248

== ENCOUNTER → 2022-04-07 | Outpatient (CLI) | payer MEDICAID | END | disposition home or self-care (01) | LOC: WHH 08:13 | PROVIDERS: ATTEND Family Medicine | DX: E11.622 Type 2 diabetes mellitus with other skin ulcer (principal); L97.822 Non-pressure chronic ulcer of other part of left lower leg with fat layer exposed; I87.8 Other specified disorders of veins; E11.628 Type 2 diabetes mellitus with other skin complications; I10 Essential (primary) hypertension; E78.5 Hyperlipidemia, unspecified; E03.9 Hypothyroidism, unspecified; E78.00 Pure hypercholesterolemia, unspecified; K74.60 Unspecified cirrhosis of liver; I25.10 Atherosclerotic heart disease of native coronary artery without angina pectoris; Z90.710 Acquired absence of both cervix and uterus; Z90.49 Acquired absence of other specified parts of digestive tract; Z79.4 Long term (current) use of insulin; Z79.82 Long term (current) use of aspirin; Z79.899 Other long term (current) drug therapy | CPT/HCPCS: 11042 ==

== ENCOUNTER → 2022-04-21 | Outpatient (CLI) | payer MEDICAID ==
[~2022-04-21] MED LIST changes: +ACET-2079 PO; +AEC81 PO; +ALBU8.5H8 IH; +ATOR10 PO; +AZEL23SP2 NS; +COLL30OI TP; +EMPA25TA PO; +FURO20TA4 PO; +LEVO137C4 PO; -LIDOCAINE HCL 4% LTA SOL 4 ML VIAL TP ONE; +METO5TAB2 PO
== END | disposition home or self-care (01) ==
LOC: WHH 08:24
PROVIDERS: ATTEND Family Medicine
DX: E11.622 Type 2 diabetes mellitus with other skin ulcer (principal); L97.822 Non-pressure chronic ulcer of other part of left lower leg with fat layer exposed; I87.8 Other specified disorders of veins; E11.628 Type 2 diabetes mellitus with other skin complications; I10 Essential (primary) hypertension; E78.5 Hyperlipidemia, unspecified; E03.9 Hypothyroidism, unspecified; E78.00 Pure hypercholesterolemia, unspecified; K74.60 Unspecified cirrhosis of liver; I25.10 Atherosclerotic heart disease of native coronary artery without angina pectoris; Z90.710 Acquired absence of both cervix and uterus; Z90.49 Acquired absence of other specified parts of digestive tract; Z79.4 Long term (current) use of insulin; Z79.82 Long term (current) use of aspirin; Z79.899 Other long term (current) drug therapy
CPT/HCPCS: 11042; A6260

== ENCOUNTER → 2022-05-12 | Outpatient (CLI) | payer MEDICAID ==
[~2022-05-12] MED LIST changes: -CLIN-141 PO; -EMPA10TA PO; -FERR500P12 MC; -FOLI0.4T6 PO; -FURO40TA5 PO; -INSU100C6 SQ; -INSU100V12 SQ; -LACT10SO32 PO; -LEVO150T11 PO; -LEVO75TA10 PO; +LIDOCAINE HCL 4% LTA SOL 4 ML VIAL TP ONE; -LIDOP TD; -LINA5TAB PO; -LORA10TA7 PO; -METF-446 PO; -PREG75 PO; -SPIR50TA PO; -SUPER B COMPLEX PO; -TRAM50TA2 PO
== END | disposition home or self-care (01) ==
LOC: WHH 08:11
PROVIDERS: ATTEND Family Medicine
DX: E11.622 Type 2 diabetes mellitus with other skin ulcer (principal); L97.822 Non-pressure chronic ulcer of other part of left lower leg with fat layer exposed; I87.8 Other specified disorders of veins; E11.628 Type 2 diabetes mellitus with other skin complications; I10 Essential (primary) hypertension; E78.5 Hyperlipidemia, unspecified; E03.9 Hypothyroidism, unspecified; E78.00 Pure hypercholesterolemia, unspecified; K74.60 Unspecified cirrhosis of liver; I25.10 Atherosclerotic heart disease of native coronary artery without angina pectoris; Z90.710 Acquired absence of both cervix and uterus; Z90.49 Acquired absence of other specified parts of digestive tract; Z79.4 Long term (current) use of insulin; Z79.82 Long term (current) use of aspirin; Z79.899 Other long term (current) drug therapy
CPT/HCPCS: 11042; A4450

== ENCOUNTER → 2022-05-18 | Outpatient (CLI) | payer MEDICAID ==
[~2022-05-18] MED LIST changes: -LIDOCAINE HCL 4% LTA SOL 4 ML VIAL TP ONE
== END | disposition home or self-care (01) ==
LOC: WHH 14:51
PROVIDERS: ATTEND Family Medicine
DX: E11.622 Type 2 diabetes mellitus with other skin ulcer (principal); L97.822 Non-pressure chronic ulcer of other part of left lower leg with fat layer exposed; I87.8 Other specified disorders of veins; E11.628 Type 2 diabetes mellitus with other skin complications; I10 Essential (primary) hypertension; E78.5 Hyperlipidemia, unspecified; E03.9 Hypothyroidism, unspecified; E78.00 Pure hypercholesterolemia, unspecified; K74.60 Unspecified cirrhosis of liver; I25.10 Atherosclerotic heart disease of native coronary artery without angina pectoris; Z90.710 Acquired absence of both cervix and uterus; Z90.49 Acquired absence of other specified parts of digestive tract; Z79.4 Long term (current) use of insulin; Z79.82 Long term (current) use of aspirin; Z79.899 Other long term (current) drug therapy
CPT/HCPCS: 99214

== ENCOUNTER → 2022-05-25 | Outpatient (CLI) | payer MEDICAID ==
[~2022-05-25] MED LIST changes: +LIDOCAINE HCL 4% LTA SOL 4 ML VIAL TP ONE
== END | disposition home or self-care (01) ==
LOC: WHH 11:15
PROVIDERS: ATTEND Family Medicine
DX: E11.622 Type 2 diabetes mellitus with other skin ulcer (principal); L97.825 Non-pressure chronic ulcer of other part of left lower leg with muscle involvement without evidence of necrosis; I87.8 Other specified disorders of veins; E11.628 Type 2 diabetes mellitus with other skin complications; I10 Essential (primary) hypertension; E78.5 Hyperlipidemia, unspecified; E03.9 Hypothyroidism, unspecified; E78.00 Pure hypercholesterolemia, unspecified; K74.60 Unspecified cirrhosis of liver; I25.10 Atherosclerotic heart disease of native coronary artery without angina pectoris; Z90.710 Acquired absence of both cervix and uterus; Z90.49 Acquired absence of other specified parts of digestive tract; Z79.4 Long term (current) use of insulin; Z79.82 Long term (current) use of aspirin; Z79.899 Other long term (current) drug therapy
CPT/HCPCS: 11042; 11045; A6248

== ENCOUNTER → 2022-06-01 | Outpatient (CLI) | payer MEDICAID ==
[~2022-06-01] MED LIST changes: -LIDOCAINE HCL 4% LTA SOL 4 ML VIAL TP ONE
== END | disposition home or self-care (01) ==
LOC: WHH 11:08
PROVIDERS: ATTEND Family Medicine
DX: E11.622 Type 2 diabetes mellitus with other skin ulcer (principal); L97.825 Non-pressure chronic ulcer of other part of left lower leg with muscle involvement without evidence of necrosis; I87.8 Other specified disorders of veins; E11.628 Type 2 diabetes mellitus with other skin complications; I10 Essential (primary) hypertension; E78.5 Hyperlipidemia, unspecified; E03.9 Hypothyroidism, unspecified; E78.00 Pure hypercholesterolemia, unspecified; K74.60 Unspecified cirrhosis of liver; I25.10 Atherosclerotic heart disease of native coronary artery without angina pectoris; Z90.710 Acquired absence of both cervix and uterus; Z90.49 Acquired absence of other specified parts of digestive tract; Z79.4 Long term (current) use of insulin; Z79.82 Long term (current) use of aspirin; Z79.899 Other long term (current) drug therapy
CPT/HCPCS: 11042; A6021; A6197; A4450

== ENCOUNTER → 2022-06-08 | Outpatient (CLI) | payer MEDICAID | END | disposition home or self-care (01) | LOC: WHH 10:57 | PROVIDERS: ATTEND Family Medicine | DX: E11.622 Type 2 diabetes mellitus with other skin ulcer (principal); L97.825 Non-pressure chronic ulcer of other part of left lower leg with muscle involvement without evidence of necrosis; I87.8 Other specified disorders of veins; E11.628 Type 2 diabetes mellitus with other skin complications; I10 Essential (primary) hypertension; E78.5 Hyperlipidemia, unspecified; E03.9 Hypothyroidism, unspecified; E78.00 Pure hypercholesterolemia, unspecified; K74.60 Unspecified cirrhosis of liver; I25.10 Atherosclerotic heart disease of native coronary artery without angina pectoris; Z90.710 Acquired absence of both cervix and uterus; Z90.49 Acquired absence of other specified parts of digestive tract; Z79.4 Long term (current) use of insulin; Z79.82 Long term (current) use of aspirin; Z79.899 Other long term (current) drug therapy | CPT/HCPCS: 11042; A6209 ==

== ENCOUNTER → 2022-06-15 | Outpatient (CLI) | payer MEDICAID ==
[~2022-06-15] MED LIST changes: +LIDOCAINE HCL 4% LTA SOL 4 ML VIAL TP ONE
== END | disposition home or self-care (01) ==
LOC: WHH 11:00
PROVIDERS: ATTEND Family Medicine
DX: E11.622 Type 2 diabetes mellitus with other skin ulcer (principal); L97.825 Non-pressure chronic ulcer of other part of left lower leg with muscle involvement without evidence of necrosis; I87.8 Other specified disorders of veins; E11.628 Type 2 diabetes mellitus with other skin complications; I10 Essential (primary) hypertension; E78.5 Hyperlipidemia, unspecified; E03.9 Hypothyroidism, unspecified; E78.00 Pure hypercholesterolemia, unspecified; K74.60 Unspecified cirrhosis of liver; I25.10 Atherosclerotic heart disease of native coronary artery without angina pectoris; Z90.710 Acquired absence of both cervix and uterus; Z90.49 Acquired absence of other specified parts of digestive tract; Z79.4 Long term (current) use of insulin; Z79.82 Long term (current) use of aspirin; Z79.899 Other long term (current) drug therapy
CPT/HCPCS: 11042; A6209

== ENCOUNTER → 2022-06-22 | Outpatient (CLI) | payer MEDICAID | END | disposition home or self-care (01) | LOC: WHH 13:41 | PROVIDERS: ATTEND Family Medicine | DX: E11.622 Type 2 diabetes mellitus with other skin ulcer (principal); L97.825 Non-pressure chronic ulcer of other part of left lower leg with muscle involvement without evidence of necrosis; I87.8 Other specified disorders of veins; E11.628 Type 2 diabetes mellitus with other skin complications; I10 Essential (primary) hypertension; E78.5 Hyperlipidemia, unspecified; E03.9 Hypothyroidism, unspecified; E78.00 Pure hypercholesterolemia, unspecified; K74.60 Unspecified cirrhosis of liver; I25.10 Atherosclerotic heart disease of native coronary artery without angina pectoris; Z90.710 Acquired absence of both cervix and uterus; Z90.49 Acquired absence of other specified parts of digestive tract; Z79.4 Long term (current) use of insulin; Z79.82 Long term (current) use of aspirin; Z79.899 Other long term (current) drug therapy | CPT/HCPCS: 11042; A6209 ==

== ENCOUNTER → 2022-06-29 | Outpatient (CLI) | payer MEDICAID | END | disposition home or self-care (01) | LOC: WHH 09:59 | PROVIDERS: ATTEND Family Medicine | DX: E11.622 Type 2 diabetes mellitus with other skin ulcer (principal); L97.825 Non-pressure chronic ulcer of other part of left lower leg with muscle involvement without evidence of necrosis; I87.8 Other specified disorders of veins; E11.628 Type 2 diabetes mellitus with other skin complications; I10 Essential (primary) hypertension; E78.5 Hyperlipidemia, unspecified; E03.9 Hypothyroidism, unspecified; E78.00 Pure hypercholesterolemia, unspecified; K74.60 Unspecified cirrhosis of liver; I25.10 Atherosclerotic heart disease of native coronary artery without angina pectoris; Z90.710 Acquired absence of both cervix and uterus; Z90.49 Acquired absence of other specified parts of digestive tract; Z79.4 Long term (current) use of insulin; Z79.82 Long term (current) use of aspirin; Z79.899 Other long term (current) drug therapy | CPT/HCPCS: 11042; A6209 ==

== ENCOUNTER → 2022-07-09 | Outpatient (CLI) | payer MEDICAID | END | disposition home or self-care (01) | LOC: WHH 08:44 | PROVIDERS: ATTEND Family Medicine | DX: E11.622 Type 2 diabetes mellitus with other skin ulcer (principal); L97.825 Non-pressure chronic ulcer of other part of left lower leg with muscle involvement without evidence of necrosis; I87.8 Other specified disorders of veins; E11.628 Type 2 diabetes mellitus with other skin complications; I10 Essential (primary) hypertension; E78.5 Hyperlipidemia, unspecified; E03.9 Hypothyroidism, unspecified; E78.00 Pure hypercholesterolemia, unspecified; K74.60 Unspecified cirrhosis of liver; I25.10 Atherosclerotic heart disease of native coronary artery without angina pectoris; Z90.710 Acquired absence of both cervix and uterus; Z90.49 Acquired absence of other specified parts of digestive tract; Z79.4 Long term (current) use of insulin; Z79.82 Long term (current) use of aspirin; Z79.899 Other long term (current) drug therapy | CPT/HCPCS: 10060; 87070; 87077; 87186; A4450 ==

== ENCOUNTER → 2022-07-16 | Outpatient (CLI) | payer MEDICAID | END | disposition home or self-care (01) | LOC: WHH 08:55 | PROVIDERS: ATTEND Family Medicine | DX: T81.89XA Other complications of procedures, not elsewhere classified, initial encounter (principal); E11.622 Type 2 diabetes mellitus with other skin ulcer; L97.825 Non-pressure chronic ulcer of other part of left lower leg with muscle involvement without evidence of necrosis; I87.8 Other specified disorders of veins; E11.628 Type 2 diabetes mellitus with other skin complications; I10 Essential (primary) hypertension; E78.5 Hyperlipidemia, unspecified; E03.9 Hypothyroidism, unspecified; E78.00 Pure hypercholesterolemia, unspecified; K74.60 Unspecified cirrhosis of liver; I25.10 Atherosclerotic heart disease of native coronary artery without angina pectoris; Z90.710 Acquired absence of both cervix and uterus; Z90.49 Acquired absence of other specified parts of digestive tract; Z79.4 Long term (current) use of insulin; Z79.82 Long term (current) use of aspirin; Z79.899 Other long term (current) drug therapy; Y83.8 Other surgical procedures as the cause of abnormal reaction of the patient, or of later complication, without mention of misadventure at the time of the procedure; Y92.238 Other place in hospital as the place of occurrence of the external cause | CPT/HCPCS: 11042 ==

== ENCOUNTER → 2022-07-23 | Outpatient (CLI) | payer MEDICAID ==
[~2022-07-23] MED LIST changes: -LIDOCAINE HCL 4% LTA SOL 4 ML VIAL TP ONE
== END | disposition home or self-care (01) ==
LOC: WHH 09:12
PROVIDERS: ATTEND Family Medicine
DX: T81.89XD Other complications of procedures, not elsewhere classified, subsequent encounter (principal); E11.622 Type 2 diabetes mellitus with other skin ulcer; L97.825 Non-pressure chronic ulcer of other part of left lower leg with muscle involvement without evidence of necrosis; I87.8 Other specified disorders of veins; E11.628 Type 2 diabetes mellitus with other skin complications; I10 Essential (primary) hypertension; E78.5 Hyperlipidemia, unspecified; E03.9 Hypothyroidism, unspecified; E78.00 Pure hypercholesterolemia, unspecified; K74.60 Unspecified cirrhosis of liver; I25.10 Atherosclerotic heart disease of native coronary artery without angina pectoris; Z90.710 Acquired absence of both cervix and uterus; Z90.49 Acquired absence of other specified parts of digestive tract; Z79.4 Long term (current) use of insulin; Z79.82 Long term (current) use of aspirin; Z79.899 Other long term (current) drug therapy; Y83.8 Other surgical procedures as the cause of abnormal reaction of the patient, or of later complication, without mention of misadventure at the time of the procedure
CPT/HCPCS: 11042

== ENCOUNTER → 2022-07-30 | Outpatient (CLI) | payer MEDICAID ==
[~2022-07-30] MED LIST changes: +LIDOCAINE HCL 4% LTA SOL 4 ML VIAL TP ONE
== END | disposition home or self-care (01) ==
LOC: WHH 08:53
PROVIDERS: ATTEND Family Medicine
DX: T81.89XD Other complications of procedures, not elsewhere classified, subsequent encounter (principal); E11.622 Type 2 diabetes mellitus with other skin ulcer; L97.825 Non-pressure chronic ulcer of other part of left lower leg with muscle involvement without evidence of necrosis; I87.8 Other specified disorders of veins; E11.628 Type 2 diabetes mellitus with other skin complications; I10 Essential (primary) hypertension; E78.5 Hyperlipidemia, unspecified; E03.9 Hypothyroidism, unspecified; E78.00 Pure hypercholesterolemia, unspecified; K74.60 Unspecified cirrhosis of liver; I25.10 Atherosclerotic heart disease of native coronary artery without angina pectoris; Z90.710 Acquired absence of both cervix and uterus; Z90.49 Acquired absence of other specified parts of digestive tract; Z79.4 Long term (current) use of insulin; Z79.82 Long term (current) use of aspirin; Z79.899 Other long term (current) drug therapy; Y83.8 Other surgical procedures as the cause of abnormal reaction of the patient, or of later complication, without mention of misadventure at the time of the procedure
CPT/HCPCS: 11042

== ENCOUNTER → 2022-08-06 | Outpatient (CLI) | payer MEDICAID ==
[~2022-08-06] MED LIST changes: +GENTAMICIN 15 GM CREAM TP ONE
== END | disposition home or self-care (01) ==
LOC: WHH 09:08
PROVIDERS: ATTEND Family Medicine
DX: T81.89XD Other complications of procedures, not elsewhere classified, subsequent encounter (principal); E11.622 Type 2 diabetes mellitus with other skin ulcer; L97.825 Non-pressure chronic ulcer of other part of left lower leg with muscle involvement without evidence of necrosis; I87.8 Other specified disorders of veins; E11.628 Type 2 diabetes mellitus with other skin complications; I10 Essential (primary) hypertension; E78.5 Hyperlipidemia, unspecified; E03.9 Hypothyroidism, unspecified; E78.00 Pure hypercholesterolemia, unspecified; K74.60 Unspecified cirrhosis of liver; I25.10 Atherosclerotic heart disease of native coronary artery without angina pectoris; Z90.710 Acquired absence of both cervix and uterus; Z90.49 Acquired absence of other specified parts of digestive tract; Z79.4 Long term (current) use of insulin; Z79.82 Long term (current) use of aspirin; Z79.899 Other long term (current) drug therapy; Y83.8 Other surgical procedures as the cause of abnormal reaction of the patient, or of later complication, without mention of misadventure at the time of the procedure
CPT/HCPCS: 11042; A6209; A4450

== ENCOUNTER → 2022-08-13 | Outpatient (CLI) | payer MEDICAID ==
[~2022-08-13] MED LIST changes: -GENTAMICIN 15 GM CREAM TP ONE; -LIDOCAINE HCL 4% LTA SOL 4 ML VIAL TP ONE
== END | disposition home or self-care (01) ==
LOC: WHH 08:48
PROVIDERS: ATTEND Family Medicine
DX: E11.622 Type 2 diabetes mellitus with other skin ulcer (principal); L97.825 Non-pressure chronic ulcer of other part of left lower leg with muscle involvement without evidence of necrosis; I87.8 Other specified disorders of veins; E11.628 Type 2 diabetes mellitus with other skin complications; I10 Essential (primary) hypertension; E78.5 Hyperlipidemia, unspecified; E03.9 Hypothyroidism, unspecified; E78.00 Pure hypercholesterolemia, unspecified; K74.60 Unspecified cirrhosis of liver; I25.10 Atherosclerotic heart disease of native coronary artery without angina pectoris; Z79.4 Long term (current) use of insulin; Z79.82 Long term (current) use of aspirin; Z79.899 Other long term (current) drug therapy
CPT/HCPCS: 99214; A6209

== ENCOUNTER → 2022-08-25 | Outpatient (CLI) | payer MEDICAID ==
[~2022-08-25] MED LIST changes: +LIDOCAINE HCL 4% LTA SOL 4 ML VIAL TP ONE
== END | disposition home or self-care (01) ==
LOC: WHH 08:11
PROVIDERS: ATTEND Family Medicine
DX: E11.622 Type 2 diabetes mellitus with other skin ulcer (principal); L97.825 Non-pressure chronic ulcer of other part of left lower leg with muscle involvement without evidence of necrosis; I87.8 Other specified disorders of veins; S51.812A Laceration without foreign body of left forearm, initial encounter; E11.628 Type 2 diabetes mellitus with other skin complications; I10 Essential (primary) hypertension; E78.5 Hyperlipidemia, unspecified; E03.9 Hypothyroidism, unspecified; E78.00 Pure hypercholesterolemia, unspecified; K74.60 Unspecified cirrhosis of liver; I25.10 Atherosclerotic heart disease of native coronary artery without angina pectoris; Z79.4 Long term (current) use of insulin; Z79.82 Long term (current) use of aspirin; Z79.899 Other long term (current) drug therapy; X58.XXXA Exposure to other specified factors, initial encounter; Y93.89 Activity, other specified; Y92.89 Other specified places as the place of occurrence of the external cause; Y99.8 Other external cause status
CPT/HCPCS: 11042; A6209

== ENCOUNTER → 2022-09-01 | Outpatient (CLI) | payer MEDICAID | END | disposition home or self-care (01) | LOC: WHH 08:20 | PROVIDERS: ATTEND Family Medicine | DX: E11.622 Type 2 diabetes mellitus with other skin ulcer (principal); L97.825 Non-pressure chronic ulcer of other part of left lower leg with muscle involvement without evidence of necrosis; I87.8 Other specified disorders of veins; S51.812D Laceration without foreign body of left forearm, subsequent encounter; E11.628 Type 2 diabetes mellitus with other skin complications; I10 Essential (primary) hypertension; E78.5 Hyperlipidemia, unspecified; E03.9 Hypothyroidism, unspecified; E78.00 Pure hypercholesterolemia, unspecified; K74.60 Unspecified cirrhosis of liver; I25.10 Atherosclerotic heart disease of native coronary artery without angina pectoris; Z79.4 Long term (current) use of insulin; Z79.82 Long term (current) use of aspirin; Z79.899 Other long term (current) drug therapy; X58.XXXD Exposure to other specified factors, subsequent encounter | CPT/HCPCS: 99214 ==

== ENCOUNTER → 2022-09-07 | Outpatient (CLI) | payer MEDICAID | END | disposition home or self-care (01) | LOC: WHH 08:22 | PROVIDERS: ATTEND Family Medicine | DX: E11.622 Type 2 diabetes mellitus with other skin ulcer (principal); L97.825 Non-pressure chronic ulcer of other part of left lower leg with muscle involvement without evidence of necrosis; I87.8 Other specified disorders of veins; S51.812D Laceration without foreign body of left forearm, subsequent encounter; E11.628 Type 2 diabetes mellitus with other skin complications; I10 Essential (primary) hypertension; E78.5 Hyperlipidemia, unspecified; E03.9 Hypothyroidism, unspecified; E78.00 Pure hypercholesterolemia, unspecified; K74.60 Unspecified cirrhosis of liver; I25.10 Atherosclerotic heart disease of native coronary artery without angina pectoris; Z79.4 Long term (current) use of insulin; Z79.82 Long term (current) use of aspirin; Z79.899 Other long term (current) drug therapy; X58.XXXD Exposure to other specified factors, subsequent encounter | CPT/HCPCS: 11042 ==

== ENCOUNTER → 2022-09-28 | Outpatient (CLI) | payer MEDICAID | END | disposition home or self-care (01) | LOC: WHH 08:26 | PROVIDERS: ATTEND Family Medicine | DX: E11.622 Type 2 diabetes mellitus with other skin ulcer (principal); L97.825 Non-pressure chronic ulcer of other part of left lower leg with muscle involvement without evidence of necrosis; I87.8 Other specified disorders of veins; E11.621 Type 2 diabetes mellitus with foot ulcer; L97.512 Non-pressure chronic ulcer of other part of right foot with fat layer exposed; E11.628 Type 2 diabetes mellitus with other skin complications; I10 Essential (primary) hypertension; E78.5 Hyperlipidemia, unspecified; E03.9 Hypothyroidism, unspecified; E78.00 Pure hypercholesterolemia, unspecified; K74.60 Unspecified cirrhosis of liver; I25.10 Atherosclerotic heart disease of native coronary artery without angina pectoris; Z79.4 Long term (current) use of insulin; Z79.82 Long term (current) use of aspirin; Z79.899 Other long term (current) drug therapy | CPT/HCPCS: 11042 ==

== ENCOUNTER → 2022-10-19 | Outpatient (CLI) | payer MEDICAID | END | disposition home or self-care (01) | LOC: WHH 08:16 | PROVIDERS: ATTEND Family Medicine | DX: E11.621 Type 2 diabetes mellitus with foot ulcer (principal); L97.512 Non-pressure chronic ulcer of other part of right foot with fat layer exposed; E11.628 Type 2 diabetes mellitus with other skin complications; I10 Essential (primary) hypertension; E78.5 Hyperlipidemia, unspecified; E03.9 Hypothyroidism, unspecified; E78.00 Pure hypercholesterolemia, unspecified; K74.60 Unspecified cirrhosis of liver; I25.10 Atherosclerotic heart disease of native coronary artery without angina pectoris; Z79.4 Long term (current) use of insulin; Z79.82 Long term (current) use of aspirin; Z79.899 Other long term (current) drug therapy | CPT/HCPCS: 11042; A4450 ==

== ENCOUNTER → 2022-11-09 | Outpatient (CLI) | payer MEDICAID, OTHER | END | disposition home or self-care (01) | LOC: WHH 08:43 | PROVIDERS: ATTEND Family Medicine | DX: E11.621 Type 2 diabetes mellitus with foot ulcer (principal); L97.512 Non-pressure chronic ulcer of other part of right foot with fat layer exposed; E11.628 Type 2 diabetes mellitus with other skin complications; I10 Essential (primary) hypertension; E78.5 Hyperlipidemia, unspecified; E03.9 Hypothyroidism, unspecified; E78.00 Pure hypercholesterolemia, unspecified; K74.60 Unspecified cirrhosis of liver; I25.10 Atherosclerotic heart disease of native coronary artery without angina pectoris; Z79.4 Long term (current) use of insulin; Z79.82 Long term (current) use of aspirin; Z79.899 Other long term (current) drug therapy | CPT/HCPCS: 11042; A4450 ==

== ENCOUNTER → 2022-12-17 | Outpatient (CLI) | payer MEDICAID | END | disposition home or self-care (01) | LOC: WHH 08:26 | PROVIDERS: ATTEND Family Medicine | DX: E11.621 Type 2 diabetes mellitus with foot ulcer (principal); L97.512 Non-pressure chronic ulcer of other part of right foot with fat layer exposed; E11.628 Type 2 diabetes mellitus with other skin complications; I10 Essential (primary) hypertension; E78.5 Hyperlipidemia, unspecified; E03.9 Hypothyroidism, unspecified; E78.00 Pure hypercholesterolemia, unspecified; I25.10 Atherosclerotic heart disease of native coronary artery without angina pectoris; K74.60 Unspecified cirrhosis of liver; Z79.4 Long term (current) use of insulin; Z79.82 Long term (current) use of aspirin; Z79.899 Other long term (current) drug therapy | CPT/HCPCS: 99214; A6209 ==

== ENCOUNTER → 2023-01-04 | Outpatient (CLI) | payer MEDICAID | END | disposition home or self-care (01) | LOC: WHH 08:35 | PROVIDERS: ATTEND Family Medicine | DX: E11.621 Type 2 diabetes mellitus with foot ulcer (principal); L97.512 Non-pressure chronic ulcer of other part of right foot with fat layer exposed; E11.628 Type 2 diabetes mellitus with other skin complications; I10 Essential (primary) hypertension; E78.5 Hyperlipidemia, unspecified; E03.9 Hypothyroidism, unspecified; E78.00 Pure hypercholesterolemia, unspecified; I25.10 Atherosclerotic heart disease of native coronary artery without angina pectoris; K74.60 Unspecified cirrhosis of liver; Z79.4 Long term (current) use of insulin; Z79.82 Long term (current) use of aspirin; Z79.899 Other long term (current) drug therapy; Z90.49 Acquired absence of other specified parts of digestive tract | CPT/HCPCS: 11042; A6209; A4450 ==

== ENCOUNTER → 2023-02-05 | Outpatient (CLI) | payer MEDICAID ==
[~2023-02-05] MED LIST changes: -AEC81 PO; -ALBU8.5H8 IH; +ALBU90AE2 IH; +ASPI-1197 PO; -ATOR10 PO; +ATOR20TA65 PO; -AZEL23SP2 NS; +BUDE10.26 IH; +CEPH500C2 PO; -COLL30OI TP; +FERS325 PO; -HUMLIS7525 SQ; +INSU100V37 SQ; +LACT10SO5 PO; -LIDOCAINE HCL 4% LTA SOL 4 ML VIAL TP ONE; +REGADENOSON 0.4 MG/5 ML PF SYG IVP ONE
== END | disposition home or self-care (01) ==
LOC: SHCH 08:22
PROVIDERS: ATTEND Internal Medicine Cardiovascular Disease
DX: R07.9 Chest pain, unspecified (principal)
CPT/HCPCS: 78452; 96374; 93017; J2785; A9500 ×2

== ENCOUNTER 2024-01-11 00:08 | Emergency (ER) | payer MEDICARE ==
[~2024-01-11 00:08] MED LIST changes: -REGADENOSON 0.4 MG/5 ML PF SYG IVP ONE
[2024-01-11 01:29] LABS: BASOPHILS # (AUTO) 0.04 K/uL (0.00-0.20); BASOPHILS % (AUTO) 0.4 % (0.0-5.0); EOSINOPHILS # (AUTO) 0.18 K/uL (0.00-0.70); HEMATOCRIT 36.8 % (36-48); IMMATURE GRANULOCYTE ABSOLUTE 0.02 K/uL (0-1); LYMPHOCYTES # (AUTO) 2.3 K/uL (1.0-4.8); LYMPHOCYTES % (AUTO) 25.1 % (21.0-51.0); MEAN CORPUSCULAR HEMOGLOBIN 29.3 pg (27.0-33.0); MEAN CORPUSCULAR HGB CONC 31.5 g/dL (32.0-36.0); MEAN CORPUSCULAR VOLUME 92.9 fL (79-99); MONOCYTES # (AUTO) 0.7 K/uL (0.1-1.0); MONOCYTES % (AUTO) 7.2 % (3.0-13.0); NEUTROPHILS % (AUTO) 65.1 % (40.0-77.0); PLATELET COUNT (AUTO) 221 K/uL (130-400); RED BLOOD CELL COUNT(AUTO) 3.96 MIL/uL (4.00-5.50); WHITE BLOOD COUNT (AUTO) 9.1 K/uL (4.8-10.8)
[2024-01-11 01:39] LABS: CREATININE 1.5 mg/dL (0.5-1.5); POTASSIUM 4.6 mmol/L (3.5-5.1)
[2024-01-11 01:44] LABS: ALBUMIN 2.7 g/dL (3.5-5.0); BILIRUBIN,TOTAL 0.4 mg/dL (0.2-1.0); TOTAL PROTEIN, SERUM 7.1 g/dL (6.0-8.3)
[2024-01-11] MEDS: ACETAMINOPHEN 325 MG TAB ONE (04:29)
[2024-01-11] MEDS: ACETAMINOPHEN 325 MG TAB PO ONE (04:29)
[2024-01-11 07:51] VITALS: BP 107/66; PULSE 78; RESP 17; O2SAT 95
== END 2024-01-11 08:59 | disposition home or self-care (01) ==
LOC: EDH 00:08
DX: S00.03XA Contusion of scalp, initial encounter (principal); E11.40 Type 2 diabetes mellitus with diabetic neuropathy, unspecified; I10 Essential (primary) hypertension; E78.00 Pure hypercholesterolemia, unspecified; E03.9 Hypothyroidism, unspecified; Z79.82 Long term (current) use of aspirin; Z79.899 Other long term (current) drug therapy; Z98.890 Other specified postprocedural states; Z90.710 Acquired absence of both cervix and uterus; Z88.8 Allergy status to other drugs, medicaments and biological substances; W18.39XA Other fall on same level, initial encounter; Y93.E1 Activity, personal bathing and showering; Y92.89 Other specified places as the place of occurrence of the external cause; Y99.8 Other external cause status
CPT/HCPCS: 36415; 70450; 72125; 72141; 73030; 73080; 80053; 85025

== ENCOUNTER → 2024-01-19 | Outpatient (CLI) | payer MEDICARE | END | disposition home or self-care (01) | LOC: WHH 08:58 | PROVIDERS: ATTEND Podiatrist Foot & Ankle Surgery | DX: E11.621 Type 2 diabetes mellitus with foot ulcer (principal); L97.512 Non-pressure chronic ulcer of other part of right foot with fat layer exposed; L97.521 Non-pressure chronic ulcer of other part of left foot limited to breakdown of skin; E11.40 Type 2 diabetes mellitus with diabetic neuropathy, unspecified; E11.628 Type 2 diabetes mellitus with other skin complications; M20.42 Other hammer toe(s) (acquired), left foot; M20.41 Other hammer toe(s) (acquired), right foot; I10 Essential (primary) hypertension; E78.00 Pure hypercholesterolemia, unspecified; E03.9 Hypothyroidism, unspecified; I25.10 Atherosclerotic heart disease of native coronary artery without angina pectoris; K74.60 Unspecified cirrhosis of liver; Z79.4 Long term (current) use of insulin; Z79.82 Long term (current) use of aspirin; Z79.899 Other long term (current) drug therapy; Z90.49 Acquired absence of other specified parts of digestive tract | CPT/HCPCS: G0463; A4450 ==

== ENCOUNTER → 2024-02-01 | Outpatient (CLI) | payer MEDICARE ==
[~2024-02-01] MED LIST changes: +LIDOCAINE HCL 4% LTA SOL 4 ML VIAL TP ONE
== END | disposition home or self-care (01) ==
LOC: WHH 08:51
PROVIDERS: ATTEND Nurse Practitioner Family
DX: E11.621 Type 2 diabetes mellitus with foot ulcer (principal); L97.512 Non-pressure chronic ulcer of other part of right foot with fat layer exposed; L97.521 Non-pressure chronic ulcer of other part of left foot limited to breakdown of skin; E11.40 Type 2 diabetes mellitus with diabetic neuropathy, unspecified; E11.628 Type 2 diabetes mellitus with other skin complications; M20.42 Other hammer toe(s) (acquired), left foot; M20.41 Other hammer toe(s) (acquired), right foot; I10 Essential (primary) hypertension; E78.00 Pure hypercholesterolemia, unspecified; E03.9 Hypothyroidism, unspecified; I25.10 Atherosclerotic heart disease of native coronary artery without angina pectoris; K74.60 Unspecified cirrhosis of liver; Z79.4 Long term (current) use of insulin; Z79.82 Long term (current) use of aspirin; Z98.49 Cataract extraction status, unspecified eye; Z90.710 Acquired absence of both cervix and uterus; Z90.49 Acquired absence of other specified parts of digestive tract; Z79.899 Other long term (current) drug therapy
CPT/HCPCS: G0463; A4450

== ENCOUNTER → 2024-06-13 | Outpatient (CLI) | payer OTHER, MEDICARE ==
[~2024-06-13] MED LIST changes: -ALBU90AE2 IH; +ALBU90AE3 IH; -LIDOCAINE HCL 4% LTA SOL 4 ML VIAL TP ONE
== END | disposition home or self-care (01) ==
LOC: SHCH 10:40
PROVIDERS: ATTEND Internal Medicine Cardiovascular Disease
DX: I25.10 Atherosclerotic heart disease of native coronary artery without angina pectoris (principal)
CPT/HCPCS: 93306

== ENCOUNTER 2024-11-14 05:47 | Day surgery (SDC) | payer OTHER, MEDICARE ==
[~2024-11-14] VITALS: Ht 144.8 cm; Wt 72.6 kg
[2024-11-14] VITALS (12 sets, daily range): BP systolic 120–160; BP diastolic 64–83; PULSE 77–89; RESP 14–18; TEMP 97.2–97.7
[~2024-11-14 05:47] MED LIST changes: +LACT-441 PO; -LACT10SO5 PO
[2024-11-14] MEDS ORDERED: [UNRECOGNIZED DRUG - OTHER] PO (07:06)
[2024-11-14] MEDS ORDERED: GLIP5TAB15 PO (07:06)
[2024-11-14] MEDS ORDERED: PSYL0.5245 PO (07:06)
[2024-11-14] MEDS ORDERED: CHOL400T14 PO (07:06)
[2024-11-14] MEDS: 0.9%NACL 1000ML 1,000 ML IV ONE (07:07)
[2024-11-14] MEDS ORDERED: proPOFol 10 MG/ML 20ML VIAL IV ONE ×2 (08:24)
[2024-11-14] MEDS: DEXTROSE 50%-WATER 50 ML DISP.SYRIN IV ONE (09:08)
== END 2024-11-14 09:54 | disposition home or self-care (01) ==
LOC: ENDO 05:47 → DAH 05:47 → ENDO 09:54
PROVIDERS: ATTEND Internal Medicine Gastroenterology
DX: K74.60 Unspecified cirrhosis of liver (principal); K31.7 Polyp of stomach and duodenum; K29.70 Gastritis, unspecified, without bleeding; K31.A11 Gastric intestinal metaplasia without dysplasia, involving the antrum; K21.9 Gastro-esophageal reflux disease without esophagitis; K64.8 Other hemorrhoids; K63.5 Polyp of colon; K59.00 Constipation, unspecified; I85.10 Secondary esophageal varices without bleeding; K80.20 Calculus of gallbladder without cholecystitis without obstruction; K64.9 Unspecified hemorrhoids; K62.89 Other specified diseases of anus and rectum; R10.11 Right upper quadrant pain; R18.8 Other ascites; K31.84 Gastroparesis; I35.2 Nonrheumatic aortic (valve) stenosis with insufficiency; I10 Essential (primary) hypertension; E11.9 Type 2 diabetes mellitus without complications; E03.9 Hypothyroidism, unspecified; E78.5 Hyperlipidemia, unspecified; G47.30 Sleep apnea, unspecified; G56.00 Carpal tunnel syndrome, unspecified upper limb; E66.9 Obesity, unspecified; Z86.2 Personal history of diseases of the blood and blood-forming organs and certain disorders involving the immune mechanism; Z88.8 Allergy status to other drugs, medicaments and biological substances; Z79.82 Long term (current) use of aspirin; Z79.84 Long term (current) use of oral hypoglycemic drugs; Z79.899 Other long term (current) drug therapy; Z68.31 Body mass index [BMI] 31.0-31.9, adult; Z86.0100 Personal history of colon polyps, unspecified
CPT/HCPCS: 82948 ×3; 43239; 43251; 45380; 45385; J7030; J7070; J2704 ×2; A4620; A4215; J3490

== ENCOUNTER 2025-04-19 14:53 | Observation (INO) | payer OTHER, MEDICARE ==
[~2025-04-19] VITALS: Ht 144.8 cm; Wt 74.1 kg
[~2025-04-19 14:53] MED LIST changes: -ACET-2079 PO; -ALBU90AE3 IH; -BUDE10.26 IH; -CEPH500C2 PO; +CHOL400T14 PO; -EMPA25TA PO; -FERS325 PO; +GLIP5TAB15 PO; -LEVO137C4 PO; +LEVO137C5 PO; -METO5TAB2 PO; +PSYL0.5245 PO; +[UNRECOGNIZED DRUG - OTHER] PO
--- NOTE | 2025-04-19 15:05 | ERN ---
ED Note History of Present Illness Stated Complaint: SENT BY [facility] Chief Complaint: Chest Pain Time Seen by MD: 14:57 Dictation: PATIENT IS A 64-YEAR-OLD FEMALE COMING IN TODAY WITH COMPLAINTS OF SUBSTERNAL CHEST PAIN INTERMITTENTLY THAT RADIATES TO BILATERAL JAW WHEN SHE IS HAVING THE PAIN. SHE STATES IT A LAST A MINUTE OR TWO AND THEN THAT IS RESOLVED. SHE HAS NO PAIN AT THE PRESENT TIME., NO BACK PAIN NO ARM PAIN. SHE STATES SHE WAS SEEN BY HER PRIMARY CARE DOCTOR WHO SENT HER OVER FOR FURTHER EVALUATION AND ASSISTANCE BY THE EMERGENCY ROOM. SHE WAS GIVEN A TOTAL OF 325 MG OF ASPIRIN PRIOR TO ARRIVAL. PATIENT STATES SHE DOES HAVE A HISTORY OF HYPERTENSION CHOLESTEROL CAD AND ONE STENT BY DR. PETERS. Allergies: Coded Allergies: No Known Allergies (Verified Allergy, Unknown, 04/21/22) Home Meds Reported Medications Glipizide (Glipizide) 5 Mg Tablet, 1 TAB PO DAILY for 30 Days, #30 TAB 0 Refills 11/14/24 Cholecalciferol (Vitamin D3) (Vitamin D3) 10 Mcg (400 Unit) Tab.chew, 1 TAB PO DAILY for 30 Days, #30 TAB 0 Refills 11/14/24 [Super Complex Vit B] No Conflict Check, PO AM 11/14/24 Psyllium Husk (Daily Fiber) 0.52 Gram Capsule, 0.52 GM PO AM, CAP 11/14/24 Duloxetine HCl (Duloxetine HCl) 60 Mg Capsule.dr, 60 MG PO DAILY, CAP 01/24/23 Aspirin (Aspirin) 81 Mg Tab.chew, 81 MG PO DAILY, TAB.CHEW 01/24/23 Metoprolol Succinate (Metoprolol Succinate) 25 Mg Tab.er.24h, 25 MG PO DAILY, TAB 01/24/23 Pantoprazole Sodium (Pantoprazole Sodium) 40 Mg Tablet.dr, 40 MG PO DAILY, TAB 01/24/23 Atorvastatin Calcium (Atorvastatin Calcium) 20 Mg Tablet, 20 MG PO HS, TAB 01/24/23 Gabapentin (Gabapentin) 100 Mg Capsule, 100 MG PO TID, CAP 01/24/23 Furosemide (Furosemide) 20 Mg Tablet, 20 MG PO DAILY, TAB 01/24/23 Spironolactone (Spironolactone) 50 Mg Tablet, 50 MG PO DAILY, TAB 01/24/23 Insulin Degludec (Tresiba) 100 Unit/1 Ml Vial, 50 UNIT SQ BIDAC, VIAL 01/24/23 Lactulose (Lactulose) 10 Gm/15 Ml Solution, 10 GM PO TID, ML 01/24/23 Levothyroxine Sodium (Levothyroxine) 137 Mcg Capsule, 137 MCG PO ACBKFST, CAP 04/21/22 Past Medical History Past Medical History: Diabetes-Type II, High Cholesterol, Heart Disease, Hypertension, Hypothyroid, Liver Disease Additional Past Medical Hx: CIRROHSIS, STENT Surgical History: Appendectomy, Hysterectomy, Other Surgical History Other: FOOT, SHOULDERS, WRISTS, HEART STENTS, HEART VALVE Social History: Negative, Lives with family History: Not Applicable RN Note Reviewed/Agreed w/PFSH: Yes Review of System Dictation CONSTITUTIONAL: NEGATIVE EXCEPT FOR HPI HEAD/FACE: NEGATIVE EXCEPT FOR HPI EENT: NEGATIVE EXCEPT FOR HPI RESPIRATORY: NEGATIVE EXCEPT FOR HPI SUBSTERNAL CHEST PAIN THAT RADIATES TO THE JAW INTERMITTENTLY GASTROINTESTINAL/ABDOMINAL: NEGATIVE EXCEPT FOR HPI GENITOURINARY: NEGATIVE EXCEPT FOR HPI MUSCULOSKELETAL: NEGATIVE EXCEPT FOR HPI INTEGUMENTARY: NEGATIVE EXCEPT FOR HPI NEUROLOGICAL/PSYCH: NEGATIVE EXCEPT FOR HPI HEMATOLOGIC/LYMPHATIC: NEGATIVE EXCEPT FOR HPI ALL SYSTEMS NEGATIVE, EXCEPT NOTED ABOVE. 13 POINT REVIEW OF SYSTEMS ASSESSED AND ALL NEGATIVE EXCEPT FOR ABOVE. Initial Vital Sign VS Vital Signs Date Time Temp Pulse Resp B/P (MAP) Pulse Ox O2 Delivery O2 Flow Rate FiO2 04/19/25 14:58 98.4 83 16 119/77 98 Room Air 0 04/19/25 15:28 21 Physical Exam Dictation VITAL SIGNS REVIEWED GENERAL APPEARANCE: ALERT, ORIENTED X 3, NO ACUTE DISTRESS, WELL DEVELOPED, NOURISHED. HEAD AND FACE: NON-TRAUMATIC. EYES: PERRL, PINK CONJUNCTIVAS, EYELID NO TRAUMA, ANTERIOR CHAMBER WITH ARCUS SENILIS. EARS: PINNAS INTACT AND NO SIGNS OF TRAUMA OR ERYTHEMA EAR CANALS CLEAR AND NO D ISCHARGE TM NO ERYTHEMA NOSE: NO DISCHARGE, NO BLEEDING. OROPHARYNX: MOUTH NORMAL, TONGUE PINK, PHARYNX CLEAR,NO ERYTHEMA, TONSILS NO EXUDATES, NO ABSCESSES NOTED, MUCOUS MEMBRANE MOIST NECK: SUPPLE, NON-TENDER, NO THYROMEGALY, NO MASSES, NO JVD, NO BRUITS BREAST:DEFERRED CHEST:NO TENDERNESS, NO CREPITUS, NO PARADOXICAL MOVEMENT, NO RETRACTIONS LUNGS:CLEAR, WELL-VENTILATED, SYMMETRIC, NO RALES, NO WHEEZING, NO RHONCHI, NO STRIDOR, GOOD BREATH SOUNDS BILATERALLY HEART: REGULAR RATE, REGULAR RHYTHM, NO MURMUR, NO GALLOPS VASCULAR: NO PERIPHERAL EDEMA, ABDOMEN: SOFT, POSITIVE BOWEL SOUNDS, NONDISTENDED, NO GUARDING, NONTENDER, NO REBOUND, NO MASSES NO HEPATOMEGALY, NO SPLENOMEGALY, NO WALTER'S SIGN, NO HERNIAS. RECTAL: DEFERRED GENITAL: DEFERRED NEUROLOGICAL: NORMAL SPEECH, MOTOR FUNCTION INTACT, SENSORY FUNCTION INTACT MUSCULOSKELETAL: NECK NONTENDER, FULL RANGE OF MOTION, BACK NONTENDER, FULL RANGE OF MOTION, EXTREMITIES: NONTENDER, FULL RANGE OF MOTION SKIN: COLOR PINK, DRY, NO TURGOR, NO RASH, NO LACERATIONS, NO ABRASIONS, NO CONTUSIONS. LYMPHATIC: DEFERRED Results (Laboratory/Radiology) Laboratory/Radiology Laboratory Tests Test 04/19/25 15:16 White Blood Count 11.0 K/uL (4.8-10.8) H Red Blood Count 4.12 MIL/uL (4.00-5.50) Hemoglobin 12.3 g/dL (12.0-16.0) Hematocrit 39.3 % (36-48) Mean Corpuscular Volume 95.4 fL (79-99) Mean Corpuscular Hemoglobin 29.9 pg (27.0-33.0) Mean Corpuscular Hemoglobin Concent 31.3 g/dL (32.0-36.0) L Red Cell Distribution Width 14.9 % (11.0-15.5) Platelet Count 286 K/uL (130-400) Mean Platelet Volume 9.8 fL (7.5-10.5) Immature Granulocyte % (Auto) 0.4 % (0-1) Neutrophils (%) (Auto) 77.5 % (40.0-77.0) H Lymphocytes (%) (Auto) 15.2 % (21.0-51.0) L Monocytes (%) (Auto) 5.9 % (3.0-13.0) Eosinophils (%) (Auto) 0.6 % (0.0-8.0) Basophils (%) (Auto) 0.4 % (0.0-5.0) Neutrophils # (Auto) 8.6 K/uL (1.8-7.7) H Lymphocytes # (Auto) 1.7 K/uL (1.0-4.8) Monocytes # (Auto) 0.7 K/uL (0.1-1.0) Eosinophils # (Auto) 0.07 K/uL (0.00-0.70) Basophils # (Auto) 0.04 K/uL (0.00-0.20) Absolute Immature Granulocyte (auto 0.04 K/uL (0-1) Nucleated Red Blood Cells 0.0 % (0.0-0.19) Sodium Level 131 mmol/L (136-145) L Potassium Level 4.5 mmol/L (3.5-5.1) Chloride Level 95 mmol/L (101-111) L Carbon Dioxide Level 28 mmol/L (21-32) Blood Urea Nitrogen 26 mg/dL (7-18) H Creatinine 1.5 mg/dL (0.5-1.0) H Glomerular Filtration Rate Calc 38 mL/min (>90) Random Glucose 359 mg/dL (70-105) H Total Calcium 8.8 mg/dL (8.5-10.1) Magnesium Level 2.20 mg/dL (1.80-2.40) Troponin I High Sensitivity 16 ng/L (4-50) B-Type Natriuretic Peptide 162 pg/mL (0-100) H Labs Reviewed?: Yes EKG Comment: EKG SINUS RHYTHM/HEART RATE 77/AXIS NORMAL/LEFT BUNDLE BRANCH BLOCK. NO PRIOR EKGS TO COMPARE ON REVIEW OF RECORD ED Course ED Course Orders Procedure Category Date Status Time Cbc With Differential LAB 04/19/25 Complete 15:00 B-Type Natriuretic LAB 04/19/25 Complete Peptide 15:00 Chest 1vw RAD 04/19/25 Resulted 15:00 12 Lead Ekg Tracing- EKG 04/19/25 Complete Technical 15:00 Magnesium LAB 04/19/25 Complete 15:00 Troponin I High LAB 04/19/25 Complete Sensitivity 15:00 Basic Metabolic Panel LAB 04/19/25 Complete 15:00 Famotidine 20mg Tab PHA 04/19/25 Logged (Pepcid 20mg Tab) 21:00 Diphenhydramine Hcl PHA 04/19/25 Logged (Benadryl Cap) 16:00 Diphenhydramine Hcl PHA 04/19/25 Logged (Benadryl Inj) 16:00 Acetaminophen 325 Tab PHA 04/19/25 Logged (Tylenol 325mg Tab 16:00 Acetaminophen 325 Tab PHA 04/19/25 Logged (Tylenol 325mg Tab 16:00 Ondansetron 4mg Inj PHA 04/19/25 Logged (Zofran 4mg Inj) 16:00 Zolpidem Tartrate 5 PHA 04/19/25 In Process Mg Tab (Ambien) 16:00 Mag/Alum/Simeth 30ml PHA 04/19/25 Logged (Maalox Plus 30ml) 16:00 Lactulose 20 Gm/30 Ml PHA 04/19/25 Logged Udcup (Constulose 16:00 Nitroglycerin 0.4mg PHA 04/19/25 Logged Sl Tab (Nitrostat) 16:00 Guaifenesin-Dm PHA 04/19/25 Logged 200/20mg 10ml 16:00 Famotidine 20mg Vial PHA 04/19/25 Logged (Pepcid 20mg Vial) 21:00 Comprehensive LAB 04/20/25 Verified Metabolic Panel 04:00 Guaifenesin Sug-Zack PHA 04/19/25 Logged 100 Mg/5ml (Robituss 16:00 Loperamide Hcl 2 Mg PHA 04/19/25 Logged Cap (Imodium) 16:00 Docusate Sodium 100 PHA 04/19/25 Logged Mg Cap (Colace 100mg 16:00 Polyethylene Glycol PHA 04/19/25 Logged 3350 (Miralax 3350 1 16:00 Alprazolam 0.5mg PHA 04/19/25 Logged (Xanax 0.5mg) 16:00 Lidocaine Hcl 2% PHA 04/19/25 Logged Viscous (Lidocaine Hcl 16:00 Natural Tears 15ml PHA 04/19/25 Logged (Artificial Tears) 16:00 Benzocaine/Menth/Cetylpyrd PHA 04/19/25 Logged Cl (Cepacol S 16:00 Admit Orders ADM 04/19/25 Transmitted 15:57 Telemetry Monitoring CPOE 04/19/25 Transmitted 15:57 Activity: Stand At CPOE 04/19/25 Transmitted Bedside 15:57 Heart Healthy Diet DIET 04/19/25 Transmitted Dinner Initiate STEFANI 04/19/25 In Process Hyperglycemia Protoco 15:57 Edm Admit Bridge Order ADM 04/19/25 Transmitted 16:03 Current Medications Medications (Trade) Dose Ordered Sig/Sheridan Route PRN Reason Start Time Stop Time Status Last Admin Dose Admin Acetaminophen (TYLenol 325MG TAB) 650 mg Q4H PRN PO MILD PAIN (1-3) 04/19/25 16:00 05/19/25 15:59 UNV Acetaminophen (TYLenol 325MG TAB) 650 mg Q6H PRN PO TEMPERATURE GREATER THAN 101.5 04/19/25 16:00 05/19/25 15:59 UNV Al Hydroxide/Mg Hydroxide (MAALox PLUS 30ML) 30 ml Q6H PRN PO INDIGESTION 04/19/25 16:00 05/19/25 15:59 UNV Alprazolam (XANax 0.5MG) 0.5 mg Q6H PRN PO ANXIETY/AGITATION 04/19/25 16:00 05/19/25 15:59 UNV Artificial Tears (Artificial Tears) 1 drop Q2H PRN OP DRY EYES 04/19/25 16:00 05/19/25 15:59 UNV Benzocaine (Cepacol Sore Throat Lozenge) 1 each Q2H PRN MM SORE THROAT 04/19/25 16:00 05/19/25 15:59 UNV Diphenhydramine HCl (BENAdryl CAP) 25 mg Q4H PRN PO MILD ITCHING/RASH 04/19/25 16:00 05/19/25 15:59 UNV Diphenhydramine HCl (BENAdryl INJ) 25 mg Q6H PRN IV SEVERE ITCHING/RASH 04/19/25 16:00 05/19/25 15:59 UNV Docusate Sodium (COLace 100MG CAP) 100 mg BID PRN PO CONSTIPATION 04/19/25 16:00 05/19/25 15:59 UNV Famotidine (Pepcid 20mg Vial) 20 mg BID IV 04/19/25 21:00 05/19/25 20:59 UNV Famotidine (Pepcid 20mg Tab) 20 mg BID PO 04/19/25 21:00 05/19/25 20:59 UNV Guaifenesin (RobiTUSSin SUGAR-FREE 100 MG/ 5 ML UDCUP) 200 mg Q4H PRN PO COUGH 04/19/25 16:00 05/19/25 15:59 UNV Guaifenesin/ Dextromethorphan (RobiTUSSin DM 200/20MG 10ML) 10 ml Q4H PRN PO COUGH 04/19/25 16:00 05/19/25 15:59 UNV Lactulose (Constulose 20gm/ 30ml Udcup) 20 gm BID PRN PO CONSTIPATION 04/19/25 16:00 05/19/25 15:59 UNV Lidocaine HCl/Al Hydroxide/Mg Hydroxide/ Dicyclomine HCl 20ML OR AD MAALOX P... Q6H PRN PO HEARTBURN 04/19/25 16:00 05/19/25 15:59 UNV Loperamide HCl (Imodium) 2 mg Q6H PRN PO AFTER EACH LOOSE STOOL 04/19/25 16:00 05/19/25 15:59 UNV Nitroglycerin (Nitrostat) 0.4 mg PROTOCOL PRN SL CHEST PAIN 04/19/25 16:00 05/19/25 15:59 Ondansetron HCl (zoFRAN 4MG INJ) 4 mg Q6H PRN IV NAUSEA/VOMITING 04/19/25 16:00 05/19/25 15:59 UNV Polyethylene Glycol (MIRalax 3350 17 GM POWD.PACK) 17 gm DAILY PRN PO CONSTIPATION 04/19/25 16:00 05/19/25 15:59 UNV Zolpidem Tartrate (AmbIEN) 5 mg HS PRN PO INSOMNIA 04/19/25 16:00 05/19/25 15:59 Vital Signs Date Time Temp Pulse Resp B/P (MAP) Pulse Ox O2 Delivery O2 Flow Rate FiO2 04/19/25 15:28 98.4 80 20 123/71 100 Room Air* 0 21 04/19/25 14:58 98.4 83 16 119/77 98 Room Air 0 1600/PATIENT HAS A NO CHEST PAIN AT THIS TIME SHE IS AWARE SHE WILL BE ADMITTED FOR HIGH-RISK CHEST PAIN, NEW ONSET LEFT BUNDLE BRANCH BLOCK UNCONTROLLED DIABETES HYPONATREMIA HYPOCHLOREMIA ALL QUESTIONS ANSWERED. SPOKE WITH JOB MERINO [facility] Score Response (Comments) Value EKG: Repolarization changes 1 Age: > 65yrs (+2) 2 Risk Factors: 3+ risk factors (+2) 2 Initial Troponin: Normal limit (0) 0 Total 5 Medical Decision Making MDM MDM: DIFFERENTIAL DIAGNOSIS: ACS/AMI/ACUTE CORONARY SYNDROME/ELECTROLYTE IMBALANCE/DEHYDRATION SOME MOANING/SEPSIS RATIONALE: TESTS CONSIDERED AND ORDERED SECONDARY TO SHARED DECISION MAKING INCLUDE: LABS, ECG AND RADIOLOGY PREVIOUS OUTSIDE RECORDS REVIEWED: OLD ER VISITS. RISK OF COMPLICATION AND/OR MORBIDITY OR MORTALITY OF PATIENT MANAGEMENT: NONE MEDICATIONS-PER MEDICATION RECONCILIATION NEED FOR HOSPITALIZATION: PATIENT DOES MEET CRITERIA FOR HOSPITALIZATION. PATIENT WILL NEED CARDIAC CONSULTATION AND SERIAL ENZYMES AND EKG CONSULT WITH NEED FOR EMERGENCY MAJOR/MINOR SURGERY: NO THERE ARE NO SOCIAL CONCERNS WITH THIS PATIENT. PRESCRIPTION DRUG MANAGEMENT PRESCRIPTIONS WILL INCLUDE SYMPTOMATIC CARE PATIENT'S PRIOR EXTERNAL MEDICAL RECORDS FROM OTHER ER VISITS WERE REVIEWED BY ME INDICATED. PRIOR TESTING AND RESULTS FROM PREVIOUS VISITS WERE REVIEWED. PRIOR TESTS WERE TAKEN INTO ACCOUNT WITH MEDICAL DECISION MAKING AND RESOURCE UTILIZATION, INDEPENDENT HISTORIAN/HISTORIANS WERE USED TO OBTAIN COMPLETE MEDICAL HISTORY. I INDEPENDENTLY INTERPRETED THE TEST THAT WERE PERFORMED, RESULTS WERE REVIEWED BY ME AND CONSIDERED FINDINGS ON RADIOLOGY IF ORDERED. MEDICAL MANAGEMENT AND EXAMINATION INTERPRETATION DISCUSSIONS WERE HAD BY ME WITH OTHER QUALIFIED HEALTHCARE PROFESSIONALS INDICATED FOR THE PATIENT'S CARE. DX & DISP Disposition: Inpatient Decision to Admit Time: 16:06 Departure Impression: Primary Impression: Chest pain with high risk of acute coronary syndrome Additional Impressions: New onset left bundle branch block (LBBB), Uncontrolled diabetes mellitus, Hyponatremia, Hypochloremia, Stage 3 chronic kidney disease, Anemia of chronic renal failure, stage 3b Condition: Stable Referrals: TAMMY CALIXTO MD (PCP) Time of Disposition: 16:06 I have reviewed the case, and I agree with, Diagnosis and Plan JACOBY JUÁREZ NP Apr 19, 2025 15:05
--- NOTE | 2025-04-19 15:22 | EKG ---
[facility] Test Date: 2025-04-19 Test Time: 15:16:58 Pat Name: ANTON GARCES Department: [facility] Room: 327 Gender: F Certified Physical Therapist Assistant: [id number] : [id number] Requested By: JACOBY JUÁREZ Order Number: [id number] Reading MD: Jyoti Martin Measurements Intervals Umbarger Rate: 77 P: 20 SD: 169 QRS: -36 QRSD: 141 T: 116 QT: 430 QTc: 487 Interpretive Statements Sinus rhythm Left bundle branch block ST elevation secondary to IVCD Compared to ECG 01/24/2023 00:00:16 Intraventricular conduction delay now present ST (T wave) deviation now present Left-axis deviation no longer present Electronically Signed On 04-20-2025 13:37:13 CDT by Jyoti Martin Please click the below link to view image of tracing.
[2025-04-19 15:23] LABS: BASOPHILS # (AUTO) 0.04 K/uL (0.00-0.20); BASOPHILS % (AUTO) 0.4 % (0.0-5.0); EOSINOPHILS # (AUTO) 0.07 K/uL (0.00-0.70); EOSINOPHILS % (AUTO) 0.6 % (0.0-8.0); HEMATOCRIT 39.3 % (36-48); IMMATURE GRANULOCYTE ABSOLUTE 0.04 K/uL (0-1); LYMPHOCYTES # (AUTO) 1.7 K/uL (1.0-4.8); LYMPHOCYTES % (AUTO) 15.2 % (21.0-51.0); MEAN CORPUSCULAR HEMOGLOBIN 29.9 pg (27.0-33.0); MEAN CORPUSCULAR HGB CONC 31.3 g/dL (32.0-36.0); MEAN CORPUSCULAR VOLUME 95.4 fL (79-99); MONOCYTES # (AUTO) 0.7 K/uL (0.1-1.0); MONOCYTES % (AUTO) 5.9 % (3.0-13.0); NEUTROPHILS # (AUTO) 8.6 K/uL (1.8-7.7); NEUTROPHILS % (AUTO) 77.5 % (40.0-77.0); PLATELET COUNT (AUTO) 286 K/uL (130-400); RED BLOOD CELL COUNT(AUTO) 4.12 MIL/uL (4.00-5.50); RED CELL DISTRIBUTION WIDTH 14.9 % (11.0-15.5)
[2025-04-19 15:32] LABS: CREATININE 1.5 mg/dL (0.5-1.0); POTASSIUM 4.5 mmol/L (3.5-5.1)
--- NOTE | 2025-04-19 15:36 | HMCIMG ---
CHEST 1VW HISTORY: Chest pain COMPARISON: None FINDINGS: A frontal projection of the chest was obtained. No acute pulmonary infiltrates is seen. The heart is normal in size. Prominent interstitial markings are seen. No evidence of aortic calcification is seen. IMPRESSION: 1. No acute pulmonary infiltrate is seen.
[2025-04-19 15:41] LABS: MAGNESIUM 2.2 mg/dL (1.80-2.40)
[2025-04-19 15:52] LABS: B-TYPE NATRIURETIC PEPTIDE 162 pg/mL (0-100)
[2025-04-19] MEDS ORDERED: DiphenhydrAMINE HCL 25 MG CAPSULE PO PRN (16:00)
[2025-04-19] MEDS ORDERED: LOPERAMIDE HCL 2 MG CAP PO PRN (16:00)
[2025-04-19] MEDS ORDERED: ARTIFICAL TEARS SOL 15 ML OP PRN (16:00)
[2025-04-19] MEDS ORDERED: ondanSETRON 4MG INJ IV PRN (16:00)
[2025-04-19] MEDS ORDERED: BENZOCAINE/MENTH/CETYLPYRD CL 1 EACH LOZENGE MM PRN (16:00)
[2025-04-19] MEDS ORDERED: DiphenhydrAMINE HCL 50 MG/ML VIAL IV PRN (16:00)
[2025-04-19] MEDS ORDERED: LIDOCAINE HCL 2% VISCOUS 30 ML, MAG/ALUM/SIMETH 30ML 30 ML, DICYCLOMINE HCL 20 MG PO PRN (16:00)
[2025-04-19] MEDS ORDERED: ZOLPidem TARTrate 5 MG TAB PO PRN (16:00)
[2025-04-19] MEDS ORDERED: guaiFENesin SUGAR-FREE 100 MG/5 ML UDCUP PO PRN (16:00)
[2025-04-19] MEDS ORDERED: LACTULOSE 20 GM/30 ML UDCUP PO PRN (16:00)
[2025-04-19] MEDS ORDERED: acetaMINOPHEN 325 MG TAB PO PRN ×2 (16:00)
[2025-04-19] MEDS ORDERED: MAG/ALUM/SIMETH 30 ML UDCUP PO PRN (16:00)
[2025-04-19] MEDS ORDERED: ALPRAZolam 0.5 MG TABLET PO PRN (16:00)
[2025-04-19] MEDS ORDERED: NITROGLYCERIN 0.4 MG SL TAB SL PRN (16:00)
[2025-04-19] MEDS ORDERED: polyETHYLene GLYCol 3350 17 GM POWD.PACK PO PRN (16:00)
[2025-04-19] MEDS ORDERED: doCUSate SODIUM 100 MG CAP PO PRN (16:00)
[2025-04-19] MEDS ORDERED: guaiFENesin-DM 200/20MG 10ML PO PRN (16:00)
[2025-04-19] MEDS ORDERED: LIDOCAINE HCL 2% VISCOUS 15 ML UDCUP PO PRN (16:30)
[2025-04-19] MEDS ORDERED: DICYCLOMINE HCL 10 MG/5 ML ML PO PRN (16:30)
--- NOTE | 2025-04-19 17:37 | HP ---
[facility] HISTORY & PHYSICAL Date Patient Seen: Apr 19, 2025 Time of Visit: 17:37 Supervising Physician: [Dr. Warren Bowden ] Primary Care Physician: Dr. Harley Christine ] Outpatient Specialists: [Dr. Phillips-cardiology, Dr. Morel-nephro] Inpatient Consults: [ ] PROBLEM LIST: Atypical chest pain, high risk cardiac etiology-POA HAKEEM on CKD3-POA Hyperglycemia 2/2 uncontrolled DM-POA Mild hyponatremia-POA CAD s/p stent x1 CHF, grade 2 diastolic dysfunction without exacerbation (EF 45-50% 06/13/24) HX of TAVR Primary HTN GERD Neuropathy Thyroid disorder PLAN: -Admit to cardiac telemetry unit -Monitor and trend troponin and EKGs q6H -Obtain echo in am -Continue ASA, Metoprolol and Lipitor, We will decide need for therapeutic anticoagulation pending trops/EKG trends and clinical progression -ACS risk stratification: TSH, lipid panel, HgA1c -Gentle IV hydration x 24 hours -Obtain d-dimer, if significant we will obtain VQ scan vs CTA chest pending kidney function improvement HPI: Patient is a 64-year-old female with PMH significant for CAD s/p stent, HTN, DM, GERD, neuropathy, CHF, CKD and TAVR who was sent by her PCP to the ED concerning abnormal findings on the EKG. Patient reports experiencing unusual chest pain that comes and goes in the past 6 days. She describes it as if something is push ing her entire chest that goes all way to her jaws with accompanying dyspnea, cough and nausea. She also noticed that her breathing gets worst when she walks, few steps feels like a huge task for her lately. Pertinent positives include orthopnea and PND. Preliminary labworks were concerning for hyperglycemia and HAKEEM, troponin was unremarkable. EKG has no ST/T-wave abnormality other than ST elevation secondary to IVCD. At the time of my assessment, patient claims zero pain. She said that she went to her PCP only have a regular check-up and was not feeling any chest pain today. Physical assessment was unrevealing without reproducible chest tenderness, mild 1-2+ non-pitting edema was noted on BLE. Goals of care were discussed with the patient verbalizing understanding and agreement. PAST MEDICAL HX: see above PAST SURGICAL HX: noncontributory SOCIAL HISTORY: No tobacco, ETOH, or illicit drug use Coded Allergies: No Known Allergies (Verified Allergy, Unknown, 04/21/22) REVIEW OF SYSTEMS: 12 point ROS reviewed with patient. Pertinent positives mentioned above. Otherwise negative. PHYSICAL EXAM: GENERAL: alert, awake oriented x 3 HEENT: EOMI, Sclera non icteric, moist mucosa NECK: Supple, no JVD, trachea midline LUNGS: Clear breath sounds bilaterally. No wheezes HEART: Regular rate and rhythm. Normal S1 and S2, without murmurs ABD: Abdomen soft, nontender. Bowel sounds present EXT: No clubbing cyanosis, 1-2+ pitting edema on BLE NEURO: Alert and oriented to person, follows commands Vital Signs (last 8hr) Date Time Temp Pulse Resp B/P (MAP) Pulse Ox O2 Delivery O2 Flow Rate FiO2 04/19/25 17:02 98.4 77 20 114/75 96 Room Air* 0 21 04/19/25 15:28 98.4 80 20 123/71 100 Room Air* 0 21 04/19/25 14:58 98.4 83 16 119/77 98 Room Air 0 LABS: Hematology Labs: Test 04/19/25 15:16 Range/Units White Blood Count 11.0 H 4.8-10.8 K/uL Red Blood Count 4.12 4.00-5.50 MIL/uL Hemoglobin 12.3 12.0-16.0 g/dL Hematocrit 39.3 36-48 % Mean Corpuscular Volume 95.4 79-99 fL Mean Corpuscular Hemoglobin 29.9 27.0-33.0 pg Mean Corpuscular Hemoglobin Concent 31.3 L 32.0-36.0 g/dL Red Cell Distribution Width 14.9 11.0-15.5 % Platelet Count 286 130-400 K/uL Mean Platelet Volume 9.8 7.5-10.5 fL Immature Granulocyte % (Auto) 0.4 0-1 % Neutrophils (%) (Auto) 77.5 H 40.0-77.0 % Lymphocytes (%) (Auto) 15.2 L 21.0-51.0 % Monocytes (%) (Auto) 5.9 3.0-13.0 % Eosinophils (%) (Auto) 0.6 0.0-8.0 % Basophils (%) (Auto) 0.4 0.0-5.0 % Neutrophils # (Auto) 8.6 H 1.8-7.7 K/uL Lymphocytes # (Auto) 1.7 1.0-4.8 K/uL Monocytes # (Auto) 0.7 0.1-1.0 K/uL Eosinophils # (Auto) 0.07 0.00-0.70 K/uL Basophils # (Auto) 0.04 0.00-0.20 K/uL Absolute Immature Granulocyte (auto 0.04 0-1 K/uL Nucleated Red Blood Cells 0.0 0.0-0.19 % Chemistry Labs: Test 04/19/25 15:16 Range/Units Sodium Level 131 L 136-145 mmol/L Potassium Level 4.5 3.5-5.1 mmol/L Chloride Level 95 L 101-111 mmol/L Carbon Dioxide Level 28 21-32 mmol/L Blood Urea Nitrogen 26 H 7-18 mg/dL Creatinine 1.5 H 0.5-1.0 mg/dL Glomerular Filtration Rate Calc 38 >90 mL/min Random Glucose 359 H 70-105 mg/dL Total Calcium 8.8 8.5-10.1 mg/dL Magnesium Level 2.20 1.80-2.40 mg/dL Troponin I High Sensitivity 16 4-50 ng/L B-Type Natriuretic Peptide 162 H 0-100 pg/mL DIAGNOSTICS / RADIOLOGY RESULTS: [ ] PLAN NEURO: Minimize central acting medications as possible. Maintain fall precautions, adequate lighting during the day PULMONARY: Supplemental 02 as needed. Maintain aspiration precautions at all times CARDIOVASCULAR: Follow hemodynamics. Vital signs per facility protocol GI & NUTRITION: Continue with nutritional support. Continue stool softeners and laxatives as needed. KIDNEYS & ELECTROLYTES: Strict monitoring of intake, output and overall fluid balance. Avoid nephrotoxic medications to the extent possible. Medications to be dosed according to renal function. Monitor electrolytes and replace as needed ENDOCRINE: Maintain blood glucose between 100-180 at all times. Hypoglycemia protocol in place INFECTIOUS DISEASE: Trend temperature, WBC and procalcitonin level Follow cultures, deescalate antibiotics as soon as possible. Panculture if new onset fever ONCOLOGY/HEMATOLOGY/COAGULATION: Monitor for s/s of bleeding Monitor hemoglobin, coagulation studies as needed SKIN: Pressure ulcer prevention per facility protocol Specialty mattress ORTHO/REHAB: Continue PT/OT Prophylaxis: Continue GI and DVT prophylaxis Code Status: Full Resuscitation Disposition: TBD Other: Total patient care time: 35 minutes. [facility] Apr 19, 2025 17:37
[2025-04-19] MEDS ORDERED: DEXTROSE 50%-WATER 50 ML DISP.SYRIN IV PRN (18:00)
[2025-04-19] MEDS ORDERED: GLUCAGON 1MG KIT 1 MG ML IM PRN (18:00)
[2025-04-19] MEDS ORDERED: LAbetaLOL 20MG SYG IV PRN (18:00)
--- NOTE | 2025-04-19 18:26 | NUR ---
PT DOES NOT HAVE HER HOME MEDS HERE.SHE WILL ASK HER DAUGHTER TO BRING THEM IN TOMORROW.
[2025-04-19 20:55] LABS: INR 0.99 (0.85-1.15); PROTHROMBIN TIME 10.5 SEC (9.6-11.6)
[2025-04-19 20:56] LABS: PARTIAL THROMBOPLASTIN TIME 28.9 SEC (26.3-35.5)
[2025-04-19] MEDS ORDERED: FAMOTIDINE 20MG VIAL IV SCH (21:00)
[2025-04-19] MEDS: INSULIN humuLIN R 100 UNIT/ML 3ML SQ SCH (21:00)
[2025-04-19] MEDS: atorVAStatin 40 MG TABLET PO SCH (21:15)
[2025-04-19] MEDS: 0.9%NACL 1000ML 1,000 ML IV SCH (21:16)
--- NOTE | 2025-04-19 21:32 | NUR ---
MARGAUX MCMAHON NOTIFIED ABOUT D-DIMER. ORDERS GIVEN.
--- NOTE | 2025-04-19 21:42 | NUR ---
REPORT GIVEN TO JORDI GARZA AT THIS TIME
--- NOTE | 2025-04-19 21:57 | HMCIMG ---
Exam Type: US VENOUS DOPPLER BILATERAL Clinical Information: D-DIMER Comparison: None Findings: The examination shows normal deep venous system. There is normal compressibility at all levels. There is no intraluminal clot. There is no occlusion. Adequate response is obtained on augmentation. Impression: No evidence of DVT.
[2025-04-19 22:00] VITALS: BP 123/60; PULSE 75; RESP 17; TEMP 97.7
[2025-04-20 04:00] VITALS: BP 110/62; PULSE 77; RESP 16; TEMP 97.8
[2025-04-20 05:31] LABS: ALBUMIN 2.4 g/dL (3.5-5.0); BILIRUBIN,TOTAL 0.6 mg/dL (0.2-1.0); CREATININE 1.4 mg/dL (0.5-1.0); MAGNESIUM 2.1 mg/dL (1.80-2.40); POTASSIUM 4.5 mmol/L (3.5-5.1); THYROID STIMULATING HORMONE 0.04 uIU/mL (0.36-3.74); TOTAL PROTEIN, SERUM 6.5 g/dL (6.0-8.3)
[2025-04-20 08:00] VITALS: BP 130/69; PULSE 75; RESP 18; TEMP 97.8
--- NOTE | 2025-04-20 08:49 | PN ---
[facility] PROGRESS NOTE Date Patient Seen: Apr 20, 2025 Time of Visit: 08:49 Supervising Physician: [ ] Primary Care Physician: Dr. Harley Christine ] Outpatient Specialists: [Dr. Phillips-cardiology, Dr. Morel-nephro] Inpatient Consults: [ ] PROBLEM LIST: Atypical chest pain, high risk cardiac etiology-POA HAKEEM on CKD3-POA Hyperglycemia 2/2 uncontrolled DM-POA Mild hyponatremia-POA CAD s/p stent x1 CHF, grade 2 diastolic dysfunction without exacerbation (EF 45-50% 06/13/24) HX of TAVR Primary HTN GERD Neuropathy Thyroid disorder PLAN: -Admit to cardiac telemetry unit -Monitor and trend troponin and EKGs q6H -Obtain echo in am -Continue ASA, Metoprolol and Lipitor, We will decide need for therapeutic anticoagulation pending trops/EKG trends and clinical progression -ACS risk stratification: TSH, lipid panel, HgA1c -Gentle IV hydration x 24 hours -Obtain d-dimer, if significant we will obtain VQ scan vs CTA chest pending kidney function improvement INTERVAL HISTORY: [ ] REVIEW OF SYSTEMS: 12 point ROS reviewed with patient. Pertinent positives mentioned above. Otherwise negative. PHYSICAL EXAM: GENERAL: alert, awake oriented x 3 HEENT: EOMI, Sclera non icteric, moist mucosa NECK: Supple, no JVD, trachea midline LUNGS: Clear breath sounds bilaterally. No wheezes HEART: Regular rate and rhythm. Normal S1 and S2, without murmurs ABD: Abdomen soft, nontender. Bowel sounds present EXT: No clubbing cyanosis, 1-2+ pitting edema on BLE NEURO: Alert and oriented to person, follows commands Vital Signs (last 8hr) Date Time Temp Pulse Resp B/P (MAP) Pulse Ox O2 Delivery O2 Flow Rate FiO2 04/20/25 04:00 97.9 77 16 110/62 94 Room Air 21 LABS: Hematology Labs: Test 04/19/25 15:16 Range/Units White Blood Count 11.0 H 4.8-10.8 K/uL Red Blood Count 4.12 4.00-5.50 MIL/uL Hemoglobin 12.3 12.0-16.0 g/dL Hematocrit 39.3 36-48 % Mean Corpuscular Volume 95.4 79-99 fL Mean Corpuscular Hemoglobin 29.9 27.0-33.0 pg Mean Corpuscular Hemoglobin Concent 31.3 L 32.0-36.0 g/dL Red Cell Distribution Width 14.9 11.0-15.5 % Platelet Count 286 130-400 K/uL Mean Platelet Volume 9.8 7.5-10.5 fL Immature Granulocyte % (Auto) 0.4 0-1 % Neutrophils (%) (Auto) 77.5 H 40.0-77.0 % Lymphocytes (%) (Auto) 15.2 L 21.0-51.0 % Monocytes (%) (Auto) 5.9 3.0-13.0 % Eosinophils (%) (Auto) 0.6 0.0-8.0 % Basophils (%) (Auto) 0.4 0.0-5.0 % Neutrophils # (Auto) 8.6 H 1.8-7.7 K/uL Lymphocytes # (Auto) 1.7 1.0-4.8 K/uL Monocytes # (Auto) 0.7 0.1-1.0 K/uL Eosinophils # (Auto) 0.07 0.00-0.70 K/uL Basophils # (Auto) 0.04 0.00-0.20 K/uL Absolute Immature Granulocyte (auto 0.04 0-1 K/uL Nucleated Red Blood Cells 0.0 0.0-0.19 % Chemistry Labs: Test 04/20/25 05:06 04/20/25 04:28 04/19/25 15:16 Range/Units Whole Blood Glucose 295 #H 70-110 MG/DL Sodium Level 137 136-145 mmol/L Potassium Level 4.5 3.5-5.1 mmol/L Chloride Level 102 101-111 mmol/L Carbon Dioxide Level 29 21-32 mmol/L Blood Urea Nitrogen 26 H 7-18 mg/dL Creatinine 1.4 H 0.5-1.0 mg/dL Glomerular Filtration Rate Calc 41 >90 mL/min Random Glucose 247 H 70-105 mg/dL Total Calcium 8.4 L 8.5-10.1 mg/dL Magnesium Level 2.10 1.80-2.40 mg/dL Total Bilirubin 0.6 0.2-1.0 mg/dL Aspartate Amino Transf (AST/SGOT) 28 10-37 U/L Alanine Aminotransferase (ALT/SGPT) 39 12-78 U/L Alkaline Phosphatase 171 H 50-136 U/L Troponin I High Sensitivity 13 4-50 ng/L Total Protein 6.5 6.0-8.3 g/dL Albumin 2.4 L 3.5-5.0 g/dL Triglycerides Level 32 30-200 mg/dL Cholesterol Level 119 <200 mg/dL LDL Cholesterol 50 0-99 mg/dL HDL Cholesterol 69 35-85 mg/dL Thyroid Stimulating Hormone (TSH) 0.04 #L 0.36-3.74 uIU/mL Hemoglobin A1c 11.0 H 4.0-6.0 % Estimated Average Glucose (eAG) 269 H 70-126 mg/dL B-Type Natriuretic Peptide 162 H 0-100 pg/mL Coagulation Labs: Test 04/19/25 20:37 Range/Units Prothrombin Time 10.5 9.6-11.6 SEC Prothromb Time International Ratio 0.99 0.85-1.15 Activated Partial Thromboplast Time 28.9 26.3-35.5 SEC D-Dimer Quantitative (PE/DVT) 772 *H 0-500 ng/mL DIAGNOSTICS / RADIOLOGY RESULTS: [ ] PLAN NEURO: Minimize central acting medications as possible. Maintain fall precautions, adequate lighting during the day PULMONARY: Supplemental 02 as needed. Maintain aspiration precautions at all times CARDIOVASCULAR: Follow hemodynamics. Vital signs per facility protocol GI & NUTRITION: Continue with nutritional support. Continue stool softeners and laxatives as needed. KIDNEYS & ELECTROLYTES: Strict monitoring of intake, output and overall fluid balance. Avoid nephrotoxic medications to the extent possible. Medications to be dosed according to renal function. Monitor electrolytes and replace as needed ENDOCRINE: Maintain blood glucose between 100-180 at all times. Hypoglycemia protocol in place INFECTIOUS DISEASE: Trend temperature, WBC and procalcitonin level Follow cultures, deescalate antibiotics as soon as possible. Panculture if new onset fever ONCOLOGY/HEMATOLOGY/COAGULATION: Monitor for s/s of bleeding Monitor hemoglobin, coagulation studies as needed SKIN: Pressure ulcer prevention per facility protocol Specialty mattress ORTHO/REHAB: Continue PT/OT Prophylaxis: Continue GI and DVT prophylaxis Code Status: Full Resuscitation Disposition: TBD Other: Total patient care time: 35 minutes. JOB KEARNEY Apr 20, 2025 08:49
--- NOTE | 2025-04-20 08:54 | EKG ---
[facility] Test Date: 2025-04-19 Test Time: 18:37:11 Pat Name: ANTON GARCES Department: [facility] Room: 327 1 Gender: F Retail Experience Specialist: [id number] : 1960 Requested By: SALOME GALLOWAY Order Number: [id number] Reading MD: Jyoti Martin Measurements Intervals [place] Rate: 73 P: 20 MO: 171 QRS: -33 QRSD: 147 T: 117 QT: 455 QTc: 502 Interpretive Statements Sinus rhythm Left bundle branch block ST elevation secondary to IVCD Compared to ECG 04/19/2025 15:16:58 No significant changes Electronically Signed On 04-20-2025 13:37:33 CDT by Jyoti Martin Please click the below link to view image of tracing.
[2025-04-20] MEDS ORDERED: FAMOTIDINE 20MG TAB PO SCH (09:00)
--- NOTE | 2025-04-20 10:10 | HMCIMG ---
NM PULMONARY/LUNG VQ SCAN HISTORY: Elevated d-dimer COMPARISON: None TECHNIQUE: Perfusion lung imaging study was performed with 5 mCi of technetium macroaggregated through intravenous route. FINDINGS: There is no evidence of segmental or subsegmental perfusion defect. Nonsegmental perfusion defects are also present. IMPRESSION: 1. Normal ventilation perfusion lung imaging study.
[2025-04-20] MEDS: ASPIRIN 81MG CHEW TAB PO SCH (10:18)
[2025-04-20] MEDS: PANTOPrazole 40 MG TAB DR PO SCH (10:18)
[2025-04-20] MEDS: metOPROLol sucCINATE 25 MG TAB.SR.24H PO SCH (10:18)
[2025-04-20] MEDS: HEParin 5,000 UNIT VIAL SQ SCH (10:26)
--- NOTE | 2025-04-20 10:39 | NUR ---
DCP: HOME Pt currently lives with dgt Elizabeth Nielsen [phone] who was at bedside. Pt uses a walker, cane, and shower chair at home. Pt has 40hrs of provider services and they assist with ADLs, home management, and meals. PCP is Dr. Wilber Christine and uses [facility] for any RX needs. At DC pt will go home and family can assist with transportation. Addendum: 04/20/25 at 1041 by CAMILA GLEASON SS Amended: Links added.
[2025-04-20 12:00] VITALS: BP 130/72; PULSE 76; RESP 18; TEMP 97.6
--- NOTE | 2025-04-20 12:59 | EKG ---
[facility] Test Date: 2025-04-20 Test Time: 12:55:48 Pat Name: ANTON GARCES Department: [facility] Room: 327 1 Gender: F Relay Operator: arabella : 1960 Requested By: SALOME GALLOWAY [facility]: [id number] Reading MD: Jyoti Martin Measurements Intervals [place] Rate: 75 P: 33 [place]: 164 QRS: -35 QRSD: 128 T: 99 QT: 452 QTc: 504 Interpretive Statements Normal sinus rhythm Left axis deviation Left bundle branch block Compared to ECG 04/19/2025 18:37:11 Left-axis deviation now present Intraventricular conduction delay no longer present ST (T wave) deviation no longer present Electronically Signed On 04-21-2025 13:21:30 CDT by Jyoti Martin Please click the below link to view image of tracing.
--- NOTE | 2025-04-20 13:19 | HMCSR ---
APPROVED REPORT EXAM: Two-dimensional and M-mode echocardiogram with Doppler and color Doppler. INDICATION ICD: Chest Pain 2D Dimensions RVDd3.0 cmLVEF(%)43.2 (>50%)LVED Vol(simp.)58.0 mL IVSd1.0 (0.7-1.1cm)FS(%)20 %LVES Vol(simp.)28.0 mL LVDd2.9 (3.8-5.6cm)LA (2D)4.3 (1.6-4.0cm)LVEF(%, simp.)51 % PWd1.1 (0.7-1.1cm)Ao Root(2D)2.0 (2.0-3.7cm)LA ESV INDEX (BP)31.09 mL/m2 LVDs2.3 (2.5-4.0cm)LVOT diam1.8 (1.8-2.4cm) IVC diam1.3 cm Deformation Strain Apical 4-12.1 % Apical 2-20.3 % Apical 3-14.8 % Global Strain-15.7 % M-Mode Dimensions EPSS1.0 cm LA (MM)4.4 (1.6-4.0cm) Ao Root(MM)2.5 (2.0-3.7cm) Aortic Valve AoV Vmax1.1 m/Peter Peak GR5.1 mmHgLVOT Vmax1.1 m/s AoV VTI0.2 mAo Mean GR3.1 mmHgLVOT VTI0.25 m CLINT (VMAX)2.49 cm2AVA (VTI) 2.7 cm2 Mitral Valve MV E Vmax70.5 cm/sDECEL Htuc781 msMV Peak GR11 mmHg MV A Hsbp926.7 cm/sP 1/2 T70 msMV Mean GR4 mmHg E/A ratio0.5MVA (PHT)3.1 cm2MVA (VTI)1.83 cm2 TDI E/E' Hyhpxf89.3E/E' Lateral7.5 Medial E' Peak V4.32 cm/sLateral E' Peak V9.40 cm/s Pulmonary Valve PV Vmax1.2 m/sPV VTI0.22 mPV Mean GR3.2 mmHg PV Peak GR5.9 mmHg Tricuspid Valve TR Vmax2.1 m/sRVSP17.2 mmHg TR Peak GR17.3 mmHg Left Ventricle The left ventricle is normal size. GLS -16.0%. There is normal left ventricular wall thickness. LVEF is 50-55%. 3D volume EF 43%. The left ventricular diastolic function is normal. Right Ventricle The right ventricle is normal size. Right ventricular systolic function is mildly reduced. RV GLS -21 .0%. Atria The left atrium size is normal. The right atrium size appears small (9mL volume) Aortic Valve Prosthetic (TAVR) aortic valve is present. No paravalvular/perivalvular leak noted. M.1 mmHg. No aortic regurgitation is present. There is no aortic valvular stenosis. Mitral Valve The mitral valve is mildly thickened. There is mild mitral annular calcification. There is trace of m itral valve regurgitation noted. There is no mitral valve stenosis. Tricuspid Valve The tricuspid valve is normal in structure. There is trace of tricuspid valve regurgitation noted. Pulmonic Valve Pulmonic valve is not well visualized. There is no pulmonic valvular regurgitation. Great Vessels The aortic root is normal in size. The IVC is normal in size and collapses >50% with inspiration. Pericardium There is no pericardial effusion. Other Information Quality : Technically difficult study due to pts body habitusRhythm : NSR Conclusion LVEF is 50-55% The left ventricular diastolic function is normal. Prosthetic (TAVR) aortic valve is present. No paravalvular/perivalvular leak noted. M.1 mmHg. There is mild mitral annular calcification.
--- NOTE | 2025-04-20 14:45 | DS ---
[facility] DISCHARGE SUMMARY Date Patient Seen: Apr 20, 2025 Time of Visit: 14:45 Supervising Physician: Dr. tiffany Bowden Primary Care Physician: Dr. Harley Christine ] Outpatient Specialists: [Dr. Phillips-cardiology, Dr. Morel-nephro] Inpatient Consults: [ ] HOSPITAL COURSE: HPI (per admitting provider) Patient is a 64-year-old female with PMH significant for CAD s/p stent, HTN, DM, GERD, neuropathy, CHF, CKD and TAVR who was sent by her PCP to the ED concerning abnormal findings on the EKG. Patient reports experiencing unusual chest pain that comes and goes in the past 6 days. She describes it as if something is pushing her entire chest that goes all way to her jaws with accompanying dyspnea, cough and nausea. She also noticed that her breathing gets worst when she walks, few steps feels like a huge task for her lately. Pertinent positives include orthopnea and PND. Preliminary labworks were concerning for hyperglycemia and HAKEEM, troponin was unremarkable. EKG has no ST/T-wave abnormality other than ST elevation secondary to IVCD. At the time of my assessment, patient claims zero pain. She said that she went to her PCP only have a regular check-up and was not feeling any chest pain today. Physical assessment was unrevealing without reproducible chest tenderness, mild 1-2+ non- pitting edema was noted on BLE. Goals of care were discussed with the patient verbalizing understanding and agreement. The patient was treated for the following problems: Patient was admitted for an episode of atypical chest pain with a high risk for cardiac etiology. On evaluation patient's workup has been negative, echo V/Q scan and lower extremity Doppler showed no signs of any acute findings. Patient has been recommended to follow up with her PCP for further blood work next week and is being discharged with recommendations to follow with Cardiology. 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 PCP notified of patients admission, hospital course and discharge. PHYSICAL EXAM: GENERAL: alert, awake oriented x 3 HEENT: EOMI, Sclera non icteric, moist mucosa NECK: Supple, no JVD, trachea midline LUNGS: Clear breath sounds bilaterally. No wheezes HEART: Regular rate and rhythm. Normal S1 and S2, without murmurs ABD: Abdomen soft, nontender. Bowel sounds present EXT: No clubbing cyanosis, 1-2+ pitting edema on BLE NEURO: Alert and oriented to person, follows commands FOLLOW-UP: Follow-up with PCP in 2-3 days RECOMMENDATIONS: See Discharge Instructions This case was seen and discussed with my supervising physician. More than 30 minutes spent on discharge process, including evaluation of the patient, discussion with nursing staff, medication reconciliation and follow-up appointments JOB KEARNEY Apr 20, 2025 14:45
[2025-04-20 16:00] VITALS: BP 134/76; PULSE 78; RESP 18; TEMP 97.4
--- NOTE | 2025-04-20 16:00 | NUR ---
No transportation until 1700.
[2025-04-20 17:18] VITALS: O2SAT 96
--- NOTE | 2025-04-20 18:35 | NUR ---
DC NOTE DC INSTRUCTIONS AND FOLLOW UP APPOINTMENT GIVEN TO PT AND DAUGHTER AT BEDSIDE, VERBALIZED UNDERSTANDING. PIV REMOVED, TELE MONITOR REMOVED, CATHETER INTACT AND DENIES ANY PAIN OR DISCOMFORT. PT IS WHEELED DOWNSTAIRS INTO VIA PRIVATE CAR. NO FURTHER COMMENTS OR CONCERNS AT THIS TIME.
== END 2025-04-20 18:35 | disposition home or self-care (01) ==
LOC: EDH 14:53 → EDHIP 14:54 → 3DH 22:00
PROVIDERS: ADMIT Internal Medicine Critical Care Medicine; ATTEND Internal Medicine Critical Care Medicine
DX: R07.89 Other chest pain (principal); N17.9 Acute kidney failure, unspecified; E11.65 Type 2 diabetes mellitus with hyperglycemia; E87.1 Hypo-osmolality and hyponatremia; E03.9 Hypothyroidism, unspecified; E78.00 Pure hypercholesterolemia, unspecified; E87.8 Other disorders of electrolyte and fluid balance, not elsewhere classified; I13.0 Hypertensive heart and chronic kidney disease with heart failure and stage 1 through stage 4 chronic kidney disease, or unspecified chronic kidney disease; E11.22 Type 2 diabetes mellitus with diabetic chronic kidney disease; N18.32 Chronic kidney disease, stage 3b; I50.30 Unspecified diastolic (congestive) heart failure; I44.7 Left bundle-branch block, unspecified; I25.10 Atherosclerotic heart disease of native coronary artery without angina pectoris; E11.40 Type 2 diabetes mellitus with diabetic neuropathy, unspecified; K21.9 Gastro-esophageal reflux disease without esophagitis; R60.0 Localized edema; D63.1 Anemia in chronic kidney disease; Z90.710 Acquired absence of both cervix and uterus; Z79.4 Long term (current) use of insulin; Z95.5 Presence of coronary angioplasty implant and graft
CPT/HCPCS: 96360; 96361 ×2; 99285; 83036; 83735 ×2; 84484 ×3; 80048; 83880; 85025; 85378; 85610; 85730; 82948 ×4; 36415 ×2; 71045; 78582; 93970; 93005 ×3; 96372; 84443; 80061; 80053; 93306; 93356; G0378 ×27; A9540; A9558; J1815 ×2; J1644; 76376

== ENCOUNTER 2025-06-06 17:02 | Emergency (ER) | payer OTHER, MEDICAID ==
[~2025-06-06] VITALS: Ht 144.8 cm; Wt 80.4 kg
[2025-06-06 17:04] VITALS: BP 146/80; PULSE 84; RESP 18; TEMP 98.3
[2025-06-06 17:43] LABS: IMMATURE GRANULOCYTE ABSOLUTE 0.04 K/uL (0-1); NUCLEATED RED BLOOD CELLS 0.0 % (0.0-0.19); PLATELET COUNT (AUTO) 241 K/uL (130-400); RED BLOOD CELL COUNT(AUTO) 3.45 MIL/uL (4.00-5.50); RED CELL DISTRIBUTION WIDTH 14.9 % (11.0-15.5); WHITE BLOOD COUNT (AUTO) 9.7 K/uL (4.8-10.8)
[2025-06-06 17:51] LABS: CREATININE 1.1 mg/dL (0.5-1.0); GLOMERULAR FILTR. RATE CALC 55.0 mL/min (>90); GLUCOSE,RANDOM 230.0 mg/dL (70-105); SODIUM SERUM 133.0 mmol/L (136-145); UREA NITROGEN, BLOOD 22.0 mg/dL (7-18)
[2025-06-06 17:58] LABS: ASPARTATE AMINOTRANSFERASE 28.0 U/L (10-37); TOTAL PROTEIN, SERUM 6.9 g/dL (6.0-8.3)
--- NOTE | 2025-06-06 18:01 | HMCIMG ---
EXAM: CR Chest, 1 View. CLINICAL HISTORY: sob COMPARISON: None provided. FINDINGS: LUNGS: The lungs show no infiltrate or other acute finding. PLEURAL SPACES: No evidence of pleural effusion or pneumothorax. MEDIASTINUM: Cardiac size and mediastinal contours within normal limits. BONES: No aggressive appearing osseous lesion seen. IMPRESSION: No acute cardiopulmonary pathology is evident. /[place]
--- NOTE | 2025-06-06 18:16 | ERN ---
General Chief Complaint: Lower Extremity Pain/Injury Stated Complaint: SWELLING Time Seen by MD: 17:04 Source: patient, family History of Present Illness Initial Comments Patient is a 64-year-old female coming in complaining of lower extremity swelling. Patient states that she does has a history of liver cirrhosis in his has been having this issues for some time. Allergies: Coded Allergies: No Known Allergies (Verified Allergy, Unknown, 04/21/22) Home Meds Reported Medications Glipizide (Glipizide) 5 Mg Tablet, 1 TAB PO DAILY for 30 Days, #30 TAB 0 Refills 11/14/24 Cholecalciferol (Vitamin D3) (Vitamin D3) 10 Mcg (400 Unit) Tab.chew, 1 TAB PO DAILY for 30 Days, #30 TAB 0 Refills 11/14/24 [Super Complex Vit B] No Conflict Check, PO AM 11/14/24 Psyllium Husk (Daily Fiber) 0.52 Gram Capsule, 0.52 GM PO AM, CAP 11/14/24 Duloxetine HCl (Duloxetine HCl) 60 Mg Capsule.dr, 60 MG PO DAILY, CAP 01/24/23 Aspirin (Aspirin) 81 Mg Tab.chew, 81 MG PO DAILY, TAB.CHEW 01/24/23 Metoprolol Succinate (Metoprolol Succinate) 25 Mg Tab.er.24h, 25 MG PO DAILY, TAB 01/24/23 Pantoprazole Sodium (Pantoprazole Sodium) 40 Mg Tablet.dr, 40 MG PO DAILY, TAB 01/24/23 Atorvastatin Calcium (Atorvastatin Calcium) 20 Mg Tablet, 20 MG PO HS, TAB 01/24/23 Gabapentin (Gabapentin) 100 Mg Capsule, 100 MG PO TID, CAP 01/24/23 Furosemide (Furosemide) 20 Mg Tablet, 20 MG PO DAILY, TAB 01/24/23 Spironolactone (Spironolactone) 50 Mg Tablet, 50 MG PO DAILY, TAB 01/24/23 Insulin Degludec (Tresiba) 100 Unit/1 Ml Vial, 50 UNIT SQ BIDAC, VIAL 01/24/23 Lactulose (Lactulose) 10 Gm/15 Ml Solution, 10 GM PO TID, ML 01/24/23 Levothyroxine Sodium (Levothyroxine) 137 Mcg Capsule, 137 MCG PO ACBKFST, CAP 04/21/22 Past Medical History Past Medical History: Diabetes-Type II, High Cholesterol, Heart Disease, Hypertension, Hypothyroid, Liver Disease, Renal Disese Medical History Other: CIRROHSIS, STENT Past Surgical History: Appendectomy, Hysterectomy Surgical History Other: HEART VALVE, BILAT SHOULDER SX Social History Social History: Negative, Lives with family Female( History) History: Not Applicable ROS Dictation CONSTITUTIONAL: No chills, no fever, no weakness, no diaphoresis, no malaise. HEAD/FACE: No signs of trauma. EENT: No eye pain, no blurred vision, no tearing, no double vision, no ear pain, no ear discharge, no nose pain, no nasal congestion, no throat pain, no throat swelling, no mouth pain. RESPIRATORY: No cough, no orthopnea, no SOB, no stridor, no wheezing. CARDIOVASCULAR: No chest pain, no edema, no palpitations, no syncope. GASTROINTESTINAL/ABDOMINAL: No abdominal pain, no constipation, no diarrhea, no nausea, no vomiting. GENITOURINARY: No abnormal discharge, no dysuria, no frequent urination, no hematuria. No complaints of pain in the genitals. MUSCULOSKELETAL: No back pain, no gout, no joint pain, no joint swelling, no muscle pain, no muscle stiffness, no neck pain. INTEGUMENTARY: No change in color, no change in hair/nails, no dryness, no lesion, no lumps, no rash. NEUROLOGICAL/PSYCH: No anxiety, not depressed, no emotional problem, no headache, no numbness, no pre-existing deficit, no history of seizures, no trem ors, no weakness. HEMATOLOGIC/LYMPHATIC: Not anemic, no history of blood clots, no apparent bleeding, no bruising, glands not swollen. All Systems Negative, Except as Noted. Physical Exam Physical Exam Dictation VITAL SIGNS: Reviewed. GENERAL APPEARANCE: Alert, oriented x3, no acute distress, obese. HEAD AND FACE: Non-traumatic. EYES: PERRL, pink conjunctivas, eyelid no trauma, anterior chamber clear. EARS: Pinnas intact and no signs of trauma or erythema. Ear canals clear and no discharge. TMs no erythema. NOSE: No discharge, no bleeding. OROPHARYNX: Mouth normal, teeth no caries, tongue pink. Pharynx clear, no erythema. Tonsils no exudates, no abscesses noted. Mucous membrane moist. NECK: Supple, non-tender, no thyromegaly, no masses, no JVD, no bruits. BREAST: Deferred. CHEST: No tenderness, no crepitus, no paradoxical movement, no retractions. LUNGS: Clear, well-ventilated, symmetric, no rales, no wheezing, no rhonchi, no stridor, good breath sounds bilaterally. HEART: Regular rate, regular rhythm, no murmur, no gallops. VASCULAR: No peripheral edema. ABDOMEN: Soft, positive bowel sounds, nondistended, no guarding, nontender, no rebound, no masses no hepatomegaly, no splenomegaly, no Fregoso's sign, no hernias. RECTAL: Deferred. GENITAL: Deferred. NEUROLOGICAL: Normal speech, gross motor function intact, gross sensory f unction intact. MUSCULOSKELETAL: Neck nontender, full range of motion, back nontender, full range of motion. EXTREMITIES: Nontender, full range of motion. 2+ pedal edema SKIN: Color pink, dry, no turgor, no rash, no lacerations, no abrasions, no contusions. LYMPHATICS: Deferred. Results Laboratory and Microbiology Lab and Micro Result Laboratory Tests Test 06/06/25 17:36 White Blood Count 9.7 K/uL (4.8-10.8) Red Blood Count 3.45 MIL/uL (4.00-5.50) L Hemoglobin 10.4 g/dL (12.0-16.0) L Hematocrit 33.5 % (36-48) L Mean Corpuscular Volume 97.1 fL (79-99) Mean Corpuscular Hemoglobin 30.1 pg (27.0-33.0) Mean Corpuscular Hemoglobin Concent 31.0 g/dL (32.0-36.0) L Red Cell Distribution Width 14.9 % (11.0-15.5) Platelet Count 241 K/uL (130-400) Mean Platelet Volume 9.7 fL (7.5-10.5) Immature Granulocyte % (Auto) 0.4 % (0-1) Neutrophils (%) (Auto) 74.6 % (40.0-77.0) Lymphocytes (%) (Auto) 16.6 % (21.0-51.0) L Monocytes (%) (Auto) 7.0 % (3.0-13.0) Eosinophils (%) (Auto) 1.0 % (0.0-8.0) Basophils (%) (Auto) 0.4 % (0.0-5.0) Neutrophils # (Auto) 7.2 K/uL (1.8-7.7) Lymphocytes # (Auto) 1.6 K/uL (1.0-4.8) Monocytes # (Auto) 0.7 K/uL (0.1-1.0) Eosinophils # (Auto) 0.10 K/uL (0.00-0.70) Basophils # (Auto) 0.04 K/uL (0.00-0.20) Absolute Immature Granulocyte (auto 0.04 K/uL (0-1) Nucleated Red Blood Cells 0.0 % (0.0-0.19) Red Blood Cell Morphology See comments Sodium Level 133 mmol/L (136-145) L Potassium Level 4.7 mmol/L (3.5-5.1) Chloride Level 99 mmol/L (101-111) L Carbon Dioxide Level 29 mmol/L (21-32) Blood Urea Nitrogen 22 mg/dL (7-18) H Creatinine 1.1 mg/dL (0.5-1.0) H Glomerular Filtration Rate Calc 55 mL/min (>90) Random Glucose 230 mg/dL (70-105) H Total Calcium 8.7 mg/dL (8.5-10.1) Total Bilirubin 0.7 mg/dL (0.2-1.0) Aspartate Amino Transf (AST/SGOT) 28 U/L (10-37) Alanine Aminotransferase (ALT/SGPT) 32 U/L (12-78) Alkaline Phosphatase 224 U/L (50-136) H B-Type Natriuretic Peptide 242 pg/mL (0-100) H Total Protein 6.9 g/dL (6.0-8.3) Albumin 2.7 g/dL (3.5-5.0) L Labs Reviewed?: Yes MDM MDM: Differential diagnosis: Pedal edema, history of liver cirrhosis, Rationale: Tests considered and ordered secondary to shared decision making include: Previous outside records reviewed: Old ER visits. Risk of complication and/or morbidity or mortality of patient management: None Medications-Per medication reconciliation Need for hospitalization: Patient does not meet criteria for hospitalization. Need for emergency major/minor surgery: No Patient is a 64-year-old female with a history of liver cirrhosis presenting for lower extremity swelling. Patient has been having these symptoms for some time she has been evaluated by PCP already. Laboratory workup within normal limits. Patient will be discharged in stable condition with a diagnosis of pedal edema. ED Course Orders Procedure Category Date Status Time Cbc With Differential LAB 06/06/25 Complete 17:20 Comprehensive LAB 06/06/25 Complete Metabolic Panel 17:20 B-Type Natriuretic LAB 06/06/25 Complete Peptide 17:20 Chest 1vw RAD 06/06/25 Resulted 17:20 Vital Signs Date Time Temp Pulse Resp B/P (MAP) Pulse Ox O2 Delivery O2 Flow Rate FiO2 06/06/25 17:04 98.2 84 18 146/80 100 Room Air 0 DX & DISP Disposition: Discharge Departure Impression: Primary Impression: Cirrhosis of liver Additional Impression: Pedal edema Condition: Stable Additional Instructions: FOLLOW-UP WITH PRIMARY CARE PROVIDER IN 1 TO 2 DAYS. TAKE MEDICATIONS DIRECTED HERE IN THE EMERGENCY ROOM. OKAY TO CONTINUE HOME MEDICATIONS UNLESS OTHERWISE DISCUSSED DURING YOUR VISIT IN THE EMERGENCY ROOM TODAY. RETURN TO YOUR NEAREST EMERGENCY ROOM IF SYMPTOMS WORSEN OR IF THERE IS NO IMPROVEMENT. CALL 911 IF YOU NEED IMMEDIATE ASSISTANCE. TAKE TYLENOL [id number] NEEDED AND IF NO CONTRAINDICATIONS ARE PRESENT. INCREASE ORAL HYDRATION. A WOUND CULTURE OR URINE CULTURE WAS ORDERED HERE IN THE EMERGENCY ROOM DEPARTMENT PLEASE FOLLOW-UP WITH PRIMARY CARE PROVIDER AND ADVISE THEM TO GET REPORTS FROM OUR FACILITY. IF YOU HAD ANY TARYN WRAP/SPLINTS THAT WERE APPLIED HERE, PLEASE DO NOT REMOVE THEM UNTIL YOU SEE YOUR PRIMARY CARE OR SPECIALTY. I did advise patient compression stockings as well. Referrals: Referrals: TAMMY CALIXTO MD (PCP) Time of Disposition: 18:14 MARGOT RIVER MD Jun 06, 2025 18:16
== END 2025-06-06 18:36 | disposition home or self-care (01) ==
LOC: EDH 17:02
DX: K74.60 Unspecified cirrhosis of liver (principal); R60.0 Localized edema; E11.9 Type 2 diabetes mellitus without complications; E78.00 Pure hypercholesterolemia, unspecified; E03.9 Hypothyroidism, unspecified; I10 Essential (primary) hypertension; Z79.82 Long term (current) use of aspirin; Z79.84 Long term (current) use of oral hypoglycemic drugs; Z79.899 Other long term (current) drug therapy; Z90.49 Acquired absence of other specified parts of digestive tract; Z90.710 Acquired absence of both cervix and uterus
CPT/HCPCS: 36415; 71045; 80053; 83880; 85025; 99284

== ENCOUNTER → 2025-06-28 | Outpatient (CLI) | payer OTHER, MEDICAID | END | disposition home or self-care (01) | LOC: WHH 08:38 | PROVIDERS: ATTEND Family Medicine | DX: E11.621 Type 2 diabetes mellitus with foot ulcer (principal); L97.411 Non-pressure chronic ulcer of right heel and midfoot limited to breakdown of skin; E11.40 Type 2 diabetes mellitus with diabetic neuropathy, unspecified; E11.628 Type 2 diabetes mellitus with other skin complications; I11.0 Hypertensive heart disease with heart failure; I50.20 Unspecified systolic (congestive) heart failure; E78.00 Pure hypercholesterolemia, unspecified; E03.9 Hypothyroidism, unspecified; I25.10 Atherosclerotic heart disease of native coronary artery without angina pectoris; K74.60 Unspecified cirrhosis of liver; M20.42 Other hammer toe(s) (acquired), left foot; M20.41 Other hammer toe(s) (acquired), right foot; Z79.4 Long term (current) use of insulin; Z98.49 Cataract extraction status, unspecified eye; Z79.82 Long term (current) use of aspirin; Z90.710 Acquired absence of both cervix and uterus; Z90.49 Acquired absence of other specified parts of digestive tract; Z79.899 Other long term (current) drug therapy | CPT/HCPCS: G0463; A4450 ==

== ENCOUNTER → 2025-07-19 | Outpatient (CLI) | payer OTHER, MEDICAID ==
[~2025-07-19] MED LIST changes: -ASPI-1197 PO; +CHOL200013 PO; -CHOL400T14 PO; +FERR-63 PO; -FURO20TA4 PO; +FURO40TA5 PO; +LACT-356 PO; -LACT-441 PO; +LEVO112C5 PO; -LEVO137C5 PO; +LIDOCAINE HCL 4% LTA SOL 4 ML VIAL TP ONE; +MAGN250T10 PO; -PSYL0.5245 PO; +UBID100C10 PO
== END | disposition home or self-care (01) ==
LOC: WHH 08:53
PROVIDERS: ATTEND Family Medicine
DX: E11.621 Type 2 diabetes mellitus with foot ulcer (principal); L97.412 Non-pressure chronic ulcer of right heel and midfoot with fat layer exposed; S51.812A Laceration without foreign body of left forearm, initial encounter; E11.40 Type 2 diabetes mellitus with diabetic neuropathy, unspecified; E11.628 Type 2 diabetes mellitus with other skin complications; I11.0 Hypertensive heart disease with heart failure; I50.20 Unspecified systolic (congestive) heart failure; E78.00 Pure hypercholesterolemia, unspecified; E03.9 Hypothyroidism, unspecified; I25.10 Atherosclerotic heart disease of native coronary artery without angina pectoris; K74.60 Unspecified cirrhosis of liver; K21.9 Gastro-esophageal reflux disease without esophagitis; E11.52 Type 2 diabetes mellitus with diabetic peripheral angiopathy with gangrene; A48.0 Gas gangrene; M20.42 Other hammer toe(s) (acquired), left foot; M20.41 Other hammer toe(s) (acquired), right foot; Z79.4 Long term (current) use of insulin; Z98.49 Cataract extraction status, unspecified eye; Z79.82 Long term (current) use of aspirin; Z90.710 Acquired absence of both cervix and uterus; Z90.49 Acquired absence of other specified parts of digestive tract; Z79.899 Other long term (current) drug therapy; X58.XXXA Exposure to other specified factors, initial encounter; Y93.89 Activity, other specified; Y92.89 Other specified places as the place of occurrence of the external cause; Y99.8 Other external cause status
CPT/HCPCS: G0463; A4450

== ENCOUNTER 2025-08-14 21:59 | Emergency (ER) | payer OTHER, MEDICAID ==
[~2025-08-14] VITALS: Ht 144.8 cm; Wt 83.9 kg
[~2025-08-14 21:59] MED LIST changes: -LIDOCAINE HCL 4% LTA SOL 4 ML VIAL TP ONE
--- NOTE | 2025-08-14 22:22 | ERN ---
ED Note History of Present Illness Stated Complaint: C/O SWELLING W/PAIN TO LOWER EXTREMITIES Chief Complaint: Lower Extremity Pain/Injury Time Seen by MD: 22:09 Time Seen by Midlevel: 22:30 Dictation: Ms. Perez is a 64-year-old female with history of CAD/cardiac stent, CHF, hypothyroidism, anemia of chronic disease, CKD, type 2 diabetes, cirrhosis, GERD, and right heel diabetic ulcer who presented to the emergency department this evening for evaluation of lower extremity pain. She reports increased edema to bilateral lower extremities feet to thighs for 3-4 days. She states that she also has had fatigue, general weakness, and shortness of breath/dyspnea on exertion. She states they recently increased her dose of spironolactone to 100 mg twice daily. They discontinued her Lasix this week and started her on torsemide 20 mg daily. She states she also has a ulcer to her right heel which she feels like may be increasing in size. She is currently receiving wound care per Dr. Perez. She denies fever, chills, cough, chest pain, palpitations, abdominal pain, nausea, vomiting, hematemesis, constipation, diarrhea, melena, hematochezia, dysuria, headache, dizziness, or focal weakness/paresthesia. GI: Dr. Deven Concepcion Wound care: Dr. Jan Perez Finance Assistant: Dr. Tramaine Morel Elevator Service Mechanic: Dr. Yahaira Phillips PCP: Dr. Tammy Calixto Allergies: Coded Allergies: No Known Allergies (Verified Allergy, Unknown, 04/21/22) Home Meds Reported Medications Ubidecarenone (Coq-10) 100 Mg Capsule, 100 MG PO AM, CAP 07/10/25 Magnesium Oxide (Magnesium) 250 Mg Tablet, 1 TAB PO DAILY for 30 Days, #30 TAB 0 Refills 07/10/25 Lactobacillus Acidophilus (Acidophilus Probiotic) 500 Million Cell Capsule, 1 CAP PO DAILY for 30 Days, #30 CAP 0 Refills 07/10/25 Cholecalciferol (Vitamin D3) (Vitamin D3) 50 Mcg (2000 Unit) Capsule, 1 CAP PO DAILY for 30 Days, #30 CAP 0 Refills 07/10/25 Levothyroxine Sodium (Levothyroxine) 112 Mcg Capsule, 1 CAP PO DAILY for 30 Days, #30 CAP 0 Refills 07/10/25 Furosemide (Furosemide) 40 Mg Tablet, 1 TAB PO DAILY for 30 Days, #30 TAB 0 Refills 07/10/25 Ferrous Sulfate (Feosol) 325 Mg (65 Mg Iron) Tablet, 1 TAB PO DAILY for 30 Days, #30 TAB 0 Refills 07/10/25 Glipizide (Glipizide) 5 Mg Tablet, 1 TAB PO DAILY for 30 Days, #30 TAB 0 Refills 11/14/24 [Super Complex Vit B] No Conflict Check, PO AM 11/14/24 Duloxetine HCl (Duloxetine HCl) 60 Mg Capsule.dr, 60 MG PO DAILY, CAP 01/24/23 Metoprolol Succinate (Metoprolol Succinate) 25 Mg Tab.er.24h, 25 MG PO DAILY, TAB 01/24/23 Pantoprazole Sodium (Pantoprazole Sodium) 40 Mg Tablet.dr, 40 MG PO DAILY, TAB 01/24/23 Atorvastatin Calcium (Atorvastatin Calcium) 20 Mg Tablet, 20 MG PO HS, TAB 01/24/23 Gabapentin (Gabapentin) 100 Mg Capsule, 100 MG PO TID, CAP 01/24/23 Spironolactone (Spironolactone) 50 Mg Tablet, 50 MG PO DAILY, TAB 01/24/23 Insulin Degludec (Tresiba) 100 Unit/1 Ml Vial, 50 UNIT SQ BIDAC, VIAL 01/24/23 Past Medical History Past Medical History: Diabetes-Type II, High Cholesterol, Hypertension, Hypothyroid, Other Additional Past Medical Hx: CIRRHOSIS OF LIVER Surgical History: Appendectomy, Hysterectomy, Other Surgical History Other: CARDIAC STENT Social History: Negative, Lives with family History: Not Applicable RN Note Reviewed/Agreed w/PFSH: Yes Review of System Dictation REVIEW OF SYSTEMS: CONSTITUTIONAL: Patient denies fevers, chills, sweats and weight changes.Reports fatigue and general weakness EYES: Patient denies any visual symptoms. EARS, NOSE, AND THROAT: No difficulties with hearing. No symptoms of rhinitis or sore throat. CARDIOVASCULAR: Patient denies chest pains, palpitations, orthopnea and paroxysmal nocturnal dyspnea. Reports lower extremity swelling feet to thighs. RESPIRATORY: No wheezing or cough. Reports shortness of breath/dyspnea on exertion. GI: No nausea, vomiting, diarrhea, constipation, abdominal pain, hematochezia or melena. : No urinary hesitancy or dribbling. No nocturia or urinary frequency. No abnormal urethral discharge. MUSCULOSKELETAL: Reports bilateral leg pain. NEUROLOGIC: No chronic headaches, no seizures. Patient denies numbness, tingling or weakness. PSYCHIATRIC: Patient denies problems with mood disturbance. No problems with anxiety. ENDOCRINE: No excessive urination or excessive thirst. DERMATOLOGIC: States has diabetic ulcer to right heel for which she is receiving wound care by Dr. Perez. He states she feels like the ulcer is increasing in size. Initial Vital Sign VS Vital Signs Date Time Temp Pulse Resp B/P (MAP) Pulse Ox O2 Delivery O2 Flow Rate FiO2 08/14/25 22:01 97.0 76 20 130/65 100 Room Air Physical Exam Dictation Vital signs: Reviewed. Afebrile Constitutional: No acute distress. Pleasant/calm. Accompanied by family Head/Face: Normocephalic, atraumatic. Eyes: Periorbital areas with no swelling, redness, or edema. Lids and lashes are normal. Conjunctival injection is absent. Sclera anicteric. Pupils equal, round, reactive to light. ENT: Pinnas intact and no signs of trauma or erythema. Ear canals clear and no discharge. TMs no erythema. No nasal discharge or bleeding noted. Oropharynx with no exudate, redness, swelling, masses, exudates, or evidence of obstruction. Uvula midline. Mucous membranes moist. Neck: Trachea midline, no masses palpated, and no cervical lymphadenopathy. No swelling. Supple, full range of motion. Chest/Axilla: No tenderness, no crepitus, no paradoxical movement, no retractions. Cardiovascular: Regular rate, regular rhythm, no murmur, no gallops. Symmetric pulses. 1 to 2+ edema bilateral lower extremities feet to thighs. Normotensive. Respiratory: Tachypneic with conversation; RR 22. Lung sounds clear; no wheezes, rales or rhonchi. Room air SpO2 100% Gastrointestinal: Inspection is normal. No distention is appreciated. Bowel sounds are normal. No mass or organomegaly . There is no tenderness. No rebound. No rigidity. No voluntary or involuntary guarding. No Fregoso's sign. Neurological: Normal speech, gross motor function intact, gross sensory function intact. No focal weakness/Paresthesia. Musculoskeletal/Extremities: All extremities have full range of motion. Tenderness upon palpation bilaterally to entirety of legs Symmetric pulses. Integumentary: Diabetic ulcer to right heel. Skin is normal color, warm and dry. Cap refill less than 3 seconds. Results (Laboratory/Radiology) Laboratory/Radiology Laboratory Tests Test 08/14/25 22:57 White Blood Count 7.7 K/uL (4.8-10.8) Red Blood Count 3.08 MIL/uL (4.00-5.50) L Hemoglobin 8.9 g/dL (12.0-16.0) L Hematocrit 29.5 % (36-48) L Mean Corpuscular Volume 95.8 fL (79-99) Mean Corpuscular Hemoglobin 28.9 pg (27.0-33.0) Mean Corpuscular Hemoglobin Concent 30.2 g/dL (32.0-36.0) L Red Cell Distribution Width 15.5 % (11.0-15.5) Platelet Count 237 K/uL (130-400) Mean Platelet Volume 10.1 fL (7.5-10.5) Immature Granulocyte % (Auto) 0.4 % (0-1) Neutrophils (%) (Auto) 76.3 % (40.0-77.0) Lymphocytes (%) (Auto) 14.6 % (21.0-51.0) L Monocytes (%) (Auto) 6.3 % (3.0-13.0) Eosinophils (%) (Auto) 2.0 % (0.0-8.0) Basophils (%) (Auto) 0.4 % (0.0-5.0) Neutrophils # (Auto) 5.9 K/uL (1.8-7.7) Lymphocytes # (Auto) 1.1 K/uL (1.0-4.8) Monocytes # (Auto) 0.5 K/uL (0.1-1.0) Eosinophils # (Auto) 0.15 K/uL (0.00-0.70) Basophils # (Auto) 0.03 K/uL (0.00-0.20) Absolute Immature Granulocyte (auto 0.03 K/uL (0-1) Nucleated Red Blood Cells 0.0 % (0.0-0.19) Red Blood Cell Morphology See comments Sodium Level 134 mmol/L (136-145) L Potassium Level 4.8 mmol/L (3.5-5.1) Chloride Level 97 mmol/L (101-111) L Carbon Dioxide Level 26 mmol/L (21-32) Blood Urea Nitrogen 32 mg/dL (7-18) H Creatinine 1.5 mg/dL (0.5-1.0) H Glomerular Filtration Rate Calc 38 mL/min (>90) Random Glucose 298 mg/dL (70-105) H Lactic Acid Level 1.9 mmol/L (0.8-2.5) Total Calcium 8.2 mg/dL (8.5-10.1) L Total Bilirubin 0.3 mg/dL (0.2-1.0) Direct Bilirubin 0.2 mg/dL (0.0-0.3) Aspartate Amino Transf (AST/SGOT) 45 U/L (10-37) H Alanine Aminotransferase (ALT/SGPT) 37 U/L (12-78) Alkaline Phosphatase 261 U/L (50-136) H Troponin I High Sensitivity 7 ng/L (4-50) B-Type Natriuretic Peptide 387 pg/mL (0-100) H Total Protein 6.7 g/dL (6.0-8.3) Albumin 2.5 g/dL (3.5-5.0) L Labs Reviewed?: Yes EKG Comment: EKG Interpretation: Time Reviewed: 2256 Ventricular rate:79 bpm IA Interval: 177 ms QRS duration: [address] segment elevation or depression. Clinical impression: Sinus rhythm with left bundle-branch block EKG Reviewed and interpreted by Dr. Blossom Norman X-RAY Comment: PATIENT: ANTON PEREZ MR#: [id number] : 1960 SEX: F AGE: 64 LOCATION: ED ORDER 48 STATUS: REG ER REPORT#: [id number] SERVICE 47 REASON: shortness of breath ORDERING PHYSICIAN: YOON HERNANDEZ PROCEDURE: CXR1VW - CHEST 1VW EXAM: CR Chest, 1 View. CLINICAL HISTORY: shortness of breath COMPARISON: April 19 2025 FINDINGS: LUNGS: The lungs show no infiltrate or other acute finding. PLEURAL SPACES: No evidence of pleural effusion or pneumothorax. MEDIASTINUM: The cardiomediastinal silhouette is within normal limits. BONES: No aggressive appearing osseous lesion seen. IMPRESSION: No acute cardiopulmonary pathology is evident. /[place] DICTATED BY: JOB TRISTAN MD DATE: 08/15/259 ELECTRONICALLY SIGNED BY: JOB TRISTAN MD DATE: 08/15/259 ED Course ED Course Orders Procedure Category Date Status Time Troponin I High LAB 08/14/25 Complete Sensitivity 22:48 12 Lead Ekg Tracing- EKG 08/14/25 Complete Technical 22:48 Basic Metabolic Panel LAB 08/14/25 Complete 22:48 Hepatic Function Panel LAB 08/14/25 Complete 22:48 Urinalysis Profile LAB 08/14/25 Logged 22:48 Chest 1vw RAD 08/14/25 Resulted 22:48 Lactic Acid LAB 08/14/25 Complete 22:48 Cbc With Differential LAB 08/14/25 Complete 22:57 B-Type Natriuretic LAB 08/14/25 Complete Peptide 23:46 Tramadol Hcl (Ultram) PHA 08/15/25 Complete 00:30 Current Medications Medications (Trade) Dose Ordered Sig/[place] Route PRN Reason Start Time Stop Time Status Last Admin Dose Admin Tramadol HCl (UltRAM) 25 mg ONCE ONCE PO 08/15/25 00:30 08/15/25 00:32 DC 08/15/25 01:41 Vital Signs Date Time Temp Pulse Resp B/P (MAP) Pulse Ox O2 Delivery O2 Flow Rate FiO2 08/14/25 22:01 97.0 76 20 130/65 100 Room Air Twelve lead EKG reflect a sinus rhythm with left bundle branch; no acute ST changes. Laboratory findings as noted below. H/H chronic anemia her baseline 8.9/29.5, Na/Cl 134/97, BUN/CR 32/1.5, GFR 38, glucose 298, Ca 8.2, AST 45, ALP 261, and albumin 2.5. BNP 387. Troponin negative. Patient with chronic CHF and CKD with worsening peripheral edema after recent diuretic medication change (Lasix discontinued, torsemide started, and spironolactone dose increase). No radiographic or laboratory evidence of acute CHF exacerbation or infection. Renal function is at baseline. She is given a single dose of Lasix 40 mg p.o. and tramadol for comfort. Symptoms mild, patient stable, and agrees with outpatient management. We will follow up with PCP for medication adjustment and coordination between Cardiology and Nephrology. Medical Decision Making MDM MDM: Differential diagnosis: CHF exacerbation, electrolyte derangement, acute on chronic kidney failure Rationale: Tests considered and ordered secondary to shared decision making include: Lab, EKG, x-ray Previous outside records reviewed: Old ER visits. Risk of complication and/or morbidity or mortality of patient management: None Medications-Per medication reconciliation Need for hospitalization: Patient does not meet criteria for hospitalization. Need for emergency major/minor surgery: No There are no social concerns with this patient. Prescription drug management: No changes Prescriptions will include symptomatic care Patient's prior external medical records from other ER visits were reviewed by me as indicated. Prior testing and results from previous visits were reviewed. Prior tests were taken into account with medical decision making and resource utilization, independent historian/historians were used to obtain complete medical history. I independently interpreted the test that were performed, results were reviewed by me and considered findings on radiology if ordered. Medical management and examination interpretation discussions were had by me with other qualified healthcare professionals as indicated for the patient's care. DX & DISP Disposition: Discharge Departure Impression: Primary Impression: Edema of both lower extremities Additional Impressions: Chronic systolic heart failure, CKD stable, Type 2 diabetes mellitus with hyperglycemia, Liver disease, chronic, with cirrhosis, Hypoalbuminemia Condition: Stable Additional Instructions: Re-evaluated today for increasing leg swelling and discomfort over the past several days. Your vital signs were stable, oxygen level normal, and chest x- ray showed no fluid in your lungs. Your labs showed: Stable anemia, mildly decreased kidney function with creatinine 1.5 and GFR is (similar to prior). Low albumin (2.5), which can contribute to swelling. BNP 387 which is mildly elevated, suggesting some fluid retention but no acute heart failure flare up. Troponin is negative, no sign of heart attack. You received a dose of Lasix 40 mg for the swelling and tramadol for leg discomfort. Do not alter your home diuretics (torsemide or spironolactone) per you have spoken with your primary care doctor. Bring all your medications to your next appointment so they can review and adjust. Use Tylenol for mild pain as needed. Elevate your legs on pillows when sitting or lying down. Limit salt (sodium) and avoid processed foods, canned soups, chips, and added salt. Monitor your weight daily. Contact your physician if your weight increases by more than3 lb in one day or 5 lb in a week. Continue current wound care for your right heel ulcer; plan for your scheduled appointment on . Notify them if you notice redness, drainage, or fever. Call your primary care provider later this morning to discuss your lab results and medication adjustments. They should be able to coordinate your care between your elementary education teacher and research mechanic to find the best combination of medication for your heart and kidneys. Return to the emergency department immediately if you develop: Worsening shortness of breath; especially when lying flat. New or worsening chest pain or palpitations. Rapid swelling of your legs, abdomen, or sudden weight gain. Dizziness, confusion, or weakness. Decreased urination. Fever, chills, or increased redness or pain around your leg wound. Referrals: TAMMY CALIXTO MD (PCP) Time of Disposition: 02:07 YOON HERNANDEZ Aug 14, 2025 22:22
--- NOTE | 2025-08-14 23:04 | EKG ---
[facility] Test Date: 2025-08-14 Test Time: 22:57:40 Pat Name: ANTON GARCES Department: ED Room: Gender: F It Architecture Analyst: 08 : 1960 Requested By: YOON HERNANDEZ Order Number: [id number] Reading MD: Jyoti Martin Measurements Intervals Hallie Rate: 79 P: 15 NV: 177 QRS: -29 QRSD: 140 T: 101 QT: 439 QTc: 505 Interpretive Statements Sinus rhythm Left bundle branch block Compared to ECG 04/20/2025 12:55:48 Left-axis deviation no longer present Electronically Signed On 08-15-2025 10:26:55 CDT by Jyoti Martin Please click the below link to view image of tracing.
[2025-08-14 23:07] LABS: IMMATURE GRANULOCYTE ABSOLUTE 0.03 K/uL (0-1); NUCLEATED RED BLOOD CELLS 0.0 % (0.0-0.19); PLATELET COUNT (AUTO) 237 K/uL (130-400); RED BLOOD CELL COUNT(AUTO) 3.08 MIL/uL (4.00-5.50); RED CELL DISTRIBUTION WIDTH 15.5 % (11.0-15.5); WHITE BLOOD COUNT (AUTO) 7.7 K/uL (4.8-10.8)
--- NOTE | 2025-08-14 23:10 | HMCIMG ---
EXAM: CR Chest, 1 View. CLINICAL HISTORY: shortness of breath COMPARISON: April 19 2025 FINDINGS: LUNGS: The lungs show no infiltrate or other acute finding. PLEURAL SPACES: No evidence of pleural effusion or pneumothorax. MEDIASTINUM: The cardiomediastinal silhouette is within normal limits. BONES: No aggressive appearing osseous lesion seen. IMPRESSION: No acute cardiopulmonary pathology is evident. /Clemente
[2025-08-14 23:20] LABS: CREATININE 1.5 mg/dL (0.5-1.0); GLOMERULAR FILTR. RATE CALC 38.0 mL/min (>90); GLUCOSE,RANDOM 298.0 mg/dL (70-105); SODIUM SERUM 134.0 mmol/L (136-145); UREA NITROGEN, BLOOD 32.0 mg/dL (7-18)
[2025-08-14 23:24] LABS: ASPARTATE AMINOTRANSFERASE 45.0 U/L (10-37); TOTAL PROTEIN, SERUM 6.7 g/dL (6.0-8.3)
[2025-08-15 02:37] VITALS: BP 134/72; PULSE 78; RESP 20; TEMP 97.4; O2SAT 100
[2025-08-17] MEDS ORDERED: TORS20TA4 PO (16:10)
[2025-08-17] MEDS ORDERED: UBID200C37 PO (16:10)
[2025-08-17] MEDS ORDERED: PIOG30TA70 PO (16:10)
[2025-08-17] MEDS ORDERED: DICY-20 PO (16:10)
== END 2025-08-15 02:42 | disposition home or self-care (01) ==
LOC: EDH 21:59
DX: R60.0 Localized edema (principal); I13.0 Hypertensive heart and chronic kidney disease with heart failure and stage 1 through stage 4 chronic kidney disease, or unspecified chronic kidney disease; I50.22 Chronic systolic (congestive) heart failure; N18.9 Chronic kidney disease, unspecified; E11.65 Type 2 diabetes mellitus with hyperglycemia; K74.60 Unspecified cirrhosis of liver; E88.09 Other disorders of plasma-protein metabolism, not elsewhere classified; E11.622 Type 2 diabetes mellitus with other skin ulcer; E78.00 Pure hypercholesterolemia, unspecified; E03.9 Hypothyroidism, unspecified; Z79.899 Other long term (current) drug therapy; Z90.710 Acquired absence of both cervix and uterus; Z95.5 Presence of coronary angioplasty implant and graft; Z79.84 Long term (current) use of oral hypoglycemic drugs
CPT/HCPCS: 36415; 71045; 80048; 80076; 83605; 83880; 84484; 85025; 93005; 99285

== ENCOUNTER → 2025-08-16 | Outpatient (CLI) | payer OTHER, MEDICAID ==
[~2025-08-16] MED LIST changes: +DICY-20 PO; +LIDOCAINE HCL 4% LTA SOL 4 ML VIAL TP ONE; +PIOG30TA70 PO; +TORS20TA4 PO; +UBID200C37 PO
== END | disposition home or self-care (01) ==
LOC: WHH 10:58
PROVIDERS: ATTEND Family Medicine
DX: E11.621 Type 2 diabetes mellitus with foot ulcer (principal); L97.412 Non-pressure chronic ulcer of right heel and midfoot with fat layer exposed; E11.40 Type 2 diabetes mellitus with diabetic neuropathy, unspecified; E11.628 Type 2 diabetes mellitus with other skin complications; I11.0 Hypertensive heart disease with heart failure; I50.20 Unspecified systolic (congestive) heart failure; E78.00 Pure hypercholesterolemia, unspecified; E03.9 Hypothyroidism, unspecified; I25.10 Atherosclerotic heart disease of native coronary artery without angina pectoris; K74.60 Unspecified cirrhosis of liver; K21.9 Gastro-esophageal reflux disease without esophagitis; E11.52 Type 2 diabetes mellitus with diabetic peripheral angiopathy with gangrene; A48.0 Gas gangrene; M20.42 Other hammer toe(s) (acquired), left foot; M20.41 Other hammer toe(s) (acquired), right foot; Z79.4 Long term (current) use of insulin; Z98.49 Cataract extraction status, unspecified eye; Z79.82 Long term (current) use of aspirin; Z90.710 Acquired absence of both cervix and uterus; Z90.49 Acquired absence of other specified parts of digestive tract; Z79.899 Other long term (current) drug therapy
CPT/HCPCS: 11042; A4450